=== PATIENT | female | born 1985 | race Caucasian/White ===

== ENCOUNTER 2018-03-14 09:55 | Emergency (ER) | payer MEDICAID ==
[~2018-03-14] VITALS: Ht 172.7 cm; Wt 99.0 kg
[~2018-03-14 09:55] MED LIST: BACDS PO; IBUP-1986 PO; LITH150C8 PO; LITH300C PO; QUET50TA PO; QUET50TA15 PO; TRAZ150T78 PO
[2018-03-14 10:51] LABS: BASOPHILS % (AUTO) 0.2 % (0-1); EOSINOPHILS # (AUTO) 0.4 X10'3 (0-0.9); HEMATOCRIT 37.7 % (35.0-45.0); HEMOGLOBIN 13.3 g/dl (12.0-16.0); LYMPHOCYTES # (AUTO) 1.7 X10'3 (1.1-4.8); LYMPHOCYTES % (AUTO) 11.3 % (21-51); MEAN CORPUSCULAR HEMOGLOBIN 29.2 PG (27.0-31.0); MEAN CORPUSCULAR HGB CONC 35.2 % (33.0-36.5); MEAN PLATELET VOLUME 8.8 FL (7.4-10.4); MONOCYTES # (AUTO) 1.3 X10'3 (0-0.9); MONOCYTES % (AUTO) 8.6 % (2-12); NEUTROPHILS # (AUTO) 11.5 X10'3 (1.8-7.7); NEUTROPHILS % (AUTO) 76.9 % (42-75); PLATELET COUNT 300 X10'3 (140-440); RED BLOOD COUNT 4.54 X10'6 (4.20-5.60); RED CELL DISTRIBUTION WIDTH 14.2 % (11.5-14.5)
[2018-03-14 10:58] LABS: PROTHROMBIN TIME 9.9 SECONDS (9.0-12.0)
[2018-03-14 11:03] LABS: ALANINE AMINOTRANSFERASE 25 U/L (12-78); ALBUMIN/GLOBULIN RATIO 0.7 (1.1-1.5); ALKALINE PHOSPHATASE 84 IU/L (46-116); ANION GAP 9 (8-16); ASPARTATE AMINO TRANSFERASE 17 U/L (10-37); BILIRUBIN,TOTAL 0.4 MG/DL (0.1-1.0); BLOOD UREA NITROGEN 6 MG/DL (7-18); BUN/CREATININE RATIO 7.4 (6.6-38.0); CALCIUM 8.4 MG/DL (8.5-10.1); CHLORIDE 104 MMOL/L (99-107); CREATININE 0.81 MG/DL (0.40-0.90); GLUCOSE 94 MG/DL (70-104); LIPASE 54 U/L (73-393); POTASSIUM 3.1 MMOL/L (3.5-5.1); SODIUM 139 MMOL/L (135-145); TOTAL CARBON DIOXIDE 25.9 MMOL/L (24-32); TOTAL PROTEIN 7.5 G/DL (6.4-8.2); eGFR 83 ML/MIN
[2018-03-14 11:32] LABS: CLARITY,URINE SLIGHTLY CLOUDY (Clear); COLOR,URINE YELLOW (Yellow); GLUCOSE, URINE NEGATIVE (Neg); KETONES,URINE NEGATIVE (Neg); LEUKOCYTE ESTERASE ,URINE SMALL (Neg); NITRITES, URINE NEGATIVE (Neg); OCCULT BLOOD,URINE MODERATE (Neg); PH,URINE 7.5 (4.8-8.0); PROTEIN,URINE NEGATIVE (Neg); URINE HCG NEGATIVE (NEG); UROBILINOGEN,URINE 0.2 E.U/dL (0.2-1.0)
[2018-03-14 11:45] LABS: SQUAMOUS EPITHELIAL CELL,UR MANY /LPF (FEW); UA COLLECTION TYPE VOIDED
[2018-03-14 11:46] LABS: BACTERIA,URINE 2+ /HPF (Neg)
[2018-03-14] MEDS ORDERED: normal saline 1000ML IV soln IVB ONE (12:30)
[2018-03-14] MEDS ORDERED: CefTRIAXone 2gm/D5W 50ml 50 ML IV ONE (12:30)
[2018-03-14] MEDS ORDERED: ketorolac trometh. 30mg/ml inj. IV ONE (12:30)
[2018-03-14] MEDS ORDERED: acetaminophen 325mg tablet PO ONE (12:30)
[2018-03-14] MEDS ORDERED: ondansetron/PF 4mg/2ml inj IV ONE (12:30)
[2018-03-14] MEDS ORDERED: potassium Cl 20 mEq SR tablet PO STA (12:31)
[2018-03-14] MEDS ORDERED: potassium 10mEq/100ml NS w/LIDOcaine (10mg/bag) IV ONE (12:35)
[2018-03-14] MEDS ORDERED: ONDA8TAB9 PO (12:44)
[2018-03-14] MEDS ORDERED: CIPR-259 PO (12:44)
[2018-03-14] MEDS ORDERED: LOPE2TAB25 PO (12:44)
[2018-03-14 16:12] VITALS: BP 108/89
== END 2018-03-14 16:14 | disposition home or self-care (01) ==
LOC: ER 09:56
DX: N39.0 Urinary tract infection, site not specified (principal); R19.7 Diarrhea, unspecified; F15.90 Other stimulant use, unspecified, uncomplicated; G89.29 Other chronic pain; I10 Essential (primary) hypertension; Z86.14 Personal history of Methicillin resistant Staphylococcus aureus infection; Z79.899 Other long term (current) drug therapy
CPT/HCPCS: 36415; 80053; 81001; 81025; 83690; 85025; 85610; 96365; 96375; 99284; J0696; J1885; J2405; J3480; J7030

== ENCOUNTER 2019-01-07 20:53 | Emergency (ER) | payer MEDICAID ==
[~2019-01-07 20:53] MED LIST changes: +CIPR-259 PO; +LOPE2TAB25 PO; +ONDA8TAB9 PO
--- NOTE | 2019-01-07 21:00 | NUR ---
PT NIL WITHIN A COUPLE OF MINUTES OF REGISTERING. BULLDOZER MECHANIC DEENA AND JAYLA MENDEZ AWARE. DEENA WILL SPEAK WITH KAMROND
--- NOTE | 2019-01-07 21:31 | NUR ---
pt left before triage.housekeeping laundry worker notified, [employer] notified.
[2019-01-07] MEDS ORDERED: CLON-527 PO (23:49)
[2019-01-07] MEDS ORDERED: CYCL-394 PO (23:49)
[2019-01-07] MEDS ORDERED: GABA800T11 PO (23:49)
[2019-01-07] MEDS ORDERED: PRAZ1CAP5 PO (23:49)
[2019-01-07] MEDS ORDERED: LURA80TA3 PO (23:49)
[2019-01-07] MEDS ORDERED: PHEN15CA PO (23:49)
[2019-01-07] MEDS ORDERED: BUPR1TAB36 SL (23:49)
[2019-01-07] MEDS ORDERED: TEMA15CA5 PO (23:49)
[2019-01-07] MEDS ORDERED: ESCI20TA38 PO (23:49)
[2019-01-07] MEDS ORDERED: TOP100T PO (23:52)
[2019-01-08] MEDS ORDERED: LURA40TA3 PO (23:07)
== END 2019-01-07 21:31 | disposition left against medical advice (07) ==
LOC: ER 20:54
DX: R44.0 Auditory hallucinations (principal); Z53.21 Procedure and treatment not carried out due to patient leaving prior to being seen by health care provider

== ENCOUNTER 2019-01-07 22:20 | Emergency (ER) | payer MEDICAID ==
[~2019-01-07] VITALS: Ht 172.7 cm; Wt 82.0 kg
--- NOTE | 2019-01-07 23:30 | NUR ---
The patient was transfered to bed 24 in the ER overflow. She was cooperative with nursing requests and gave a urine sample. The patient appears very internally preoccupied. She is distracted. Her affect is flat and she is giving very little eye contact. She admits to hearing voices that have been telling her that her kids are not safe. She stated that she has not been sleeping well at home. She denies that she feels like harming herself at this time. She is quarded.
[2019-01-07 23:41] LABS: BASOPHILS % (AUTO) 0.1 % (0-1); EOSINOPHILS # (AUTO) 0.1 X10'3 (0-0.9); EOSINOPHILS % (AUTO) 0.4 % (0-6); HEMATOCRIT 44.8 % (35.0-45.0); HEMOGLOBIN 14.9 g/dl (12.0-16.0); MEAN CORPUSCULAR HEMOGLOBIN 28.5 PG (27.0-31.0); MEAN CORPUSCULAR HGB CONC 33.3 g/dL (33.0-36.5); MEAN CORPUSCULAR VOLUME 85.4 FL (78-98); MEAN PLATELET VOLUME 8.9 FL (7.4-10.4); MONOCYTES # (AUTO) 0.6 X10'3 (0-0.9); MONOCYTES % (AUTO) 4.6 % (2-12); NEUTROPHILS # (AUTO) 10.6 X10'3 (1.8-7.7); NEUTROPHILS % (AUTO) 86.9 % (42-75); PLATELET COUNT 272 X10'3 (140-440); RED BLOOD COUNT 5.24 X10'6 (4.20-5.60); RED CELL DISTRIBUTION WIDTH 13.6 % (11.5-14.5); WHITE BLOOD COUNT 12.2 X10'3 (4.5-11.0)
[2019-01-07] MEDS ORDERED: PHEN15CA PO (23:49)
[2019-01-07] MEDS ORDERED: GABA800T11 PO (23:49)
[2019-01-07] MEDS ORDERED: BUPR1TAB36 SL (23:49)
[2019-01-07] MEDS ORDERED: ESCI20TA38 PO (23:49)
[2019-01-07] MEDS ORDERED: TEMA15CA5 PO (23:49)
[2019-01-07] MEDS ORDERED: CYCL-394 PO (23:49)
[2019-01-07] MEDS ORDERED: CLON-527 PO (23:49)
[2019-01-07] MEDS ORDERED: LURA80TA3 PO (23:49)
[2019-01-07] MEDS ORDERED: PRAZ1CAP5 PO (23:49)
[2019-01-07] MEDS ORDERED: TOP100T PO (23:52)
[2019-01-08 00:09] LABS: URINE HCG NEGATIVE (NEG)
[2019-01-08] MEDS ORDERED: cyclobenzaprine 10mg tablet PO PRN (00:10)
[2019-01-08] MEDS ORDERED: clonazePAM 1mg tablet PO PRN (00:10)
[2019-01-08 00:18] LABS: CLARITY,URINE SLIGHTLY CLOUDY (Clear); COLOR,URINE YELLOW (Yellow); GLUCOSE, URINE NEGATIVE (Neg); KETONES,URINE >=80 mg/dl (Neg); LEUKOCYTE ESTERASE ,URINE NEGATIVE (Neg); NITRITES, URINE NEGATIVE (Neg); OCCULT BLOOD,URINE TRACE-INTACT (Neg); PROTEIN,URINE TRACE mg/dl (Neg)
[2019-01-08 00:20] LABS: URINE AMPHETAMINE SCREEN NEGATIVE (Neg); URINE BARBITUATE SCREEN NEGATIVE (Neg); URINE BENZODIAZEPINES SCREEN POSITIVE (Neg); URINE CANNABINOID SCREEN NEGATIVE (Neg); URINE COCAINE SCREEN NEGATIVE (Neg); URINE METHADONE SCREEN NEGATIVE (Neg); URINE OPIATE SCREEN NEGATIVE (Neg); URINE PHENCYCLIDINE SCREEN NEGATIVE (Neg)
[2019-01-08 00:20] LABS: ALANINE AMINOTRANSFERASE 25 U/L (12-78); ALBUMIN 4.3 G/DL (3.4-5.0); ALBUMIN/GLOBULIN RATIO 1.2 (1.1-1.5); ALKALINE PHOSPHATASE 48 IU/L (46-116); ANION GAP 11 (8-16); ASPARTATE AMINO TRANSFERASE 17 U/L (10-37); BILIRUBIN,TOTAL 0.3 MG/DL (0.1-1.0); BLOOD UREA NITROGEN 12 MG/DL (7-18); BUN/CREATININE RATIO 16.7 (6.6-38.0); CALCIUM 9.1 MG/DL (8.5-10.1); CHLORIDE 104 MMOL/L (99-107); CREATININE 0.72 MG/DL (0.40-0.90); GLUCOSE 91 MG/DL (70-104); POTASSIUM 3.7 MMOL/L (3.5-5.1); SODIUM 139 MMOL/L (135-145); TOTAL CARBON DIOXIDE 24.2 MMOL/L (24-32); TOTAL PROTEIN 7.8 G/DL (6.4-8.2); eGFR > 90 ML/MIN
[2019-01-08 00:21] LABS: UA COLLECTION TYPE CLN CATCH MIDSTREAM
[2019-01-08 00:25] LABS: MUCUS STRANDS MANY /LPF (Neg); SQUAMOUS EPITHELIAL CELL,UR MANY /LPF (FEW); WBC,URINE 0-4 /HPF (0-4)
[2019-01-08 00:26] LABS: BACTERIA,URINE 2+ /HPF (Neg)
[2019-01-08 00:29] LABS: ETHANOL < 0.010 GM/DL (0.0-0.010)
[2019-01-08 00:58] LABS: ACETAMINOPHEN < 2.0 UG/ML (10-30)
--- NOTE | 2019-01-08 07:18 | NUR ---
Talked with patient, she denies harm to self or others, she has concerns for her children and wants to get back to them. Patient does not understand why she is on a 72 hour hold. She said she lives [employer] with her mother and [employer] with her grandfather. She has 4 children ages 14,12,9,6 that live with her at her mothers, this is who currently has her children. Patients mother called this morning and she talked with her.
--- NOTE | 2019-01-08 07:26 | NUR ---
patient denies physical assessment, information charted was from verbal interview with patient.
[2019-01-08] MEDS ORDERED: citalopram 20mg tablet PO SCH (08:00)
[2019-01-08] MEDS ORDERED: topiramate 100mg tablet PO SCH (08:00)
[2019-01-08] MEDS ORDERED: PHENTERMINE HCL PO SCH (08:00)
[2019-01-08] MEDS: buprenorphine/naloxone 8mg/2mg SL tablet SL SCH ×3 (09:08→20:28)
[2019-01-08] MEDS: gabapentin 400mg capsule PO SCH ×2 (09:09→16:45)
--- NOTE | 2019-01-08 10:00 | NUR ---
patient lying in bed and does not want to be bothered.
--- NOTE | 2019-01-08 12:00 | NUR ---
patient seen by Dr. Childress and [facility]
[2019-01-08] MEDS ORDERED: lurasidone 20mg tablet PO ONE (12:05)
[2019-01-08] MEDS ORDERED: nicotine 21mg patch - 24 hr TD ONE (12:05)
[2019-01-08] MEDS ORDERED: NICOTINE POLACRILEX 2 MG LOZENGE MM PRN (12:05)
--- NOTE | 2019-01-08 14:00 | NUR ---
mother of patient here at bedside.
--- NOTE | 2019-01-08 15:00 | NUR ---
rest padd called to evaluate, unable to take due to patient being on suboxone
--- NOTE | 2019-01-08 17:00 | NUR ---
patient lying in bed on left side with eyes closed.
[2019-01-08 17:48] VITALS: BP 119/68
[2019-01-08] MEDS ORDERED: prazosin 1mg capsule PO SCH (21:00)
[2019-01-08] MEDS ORDERED: temazepam 15mg capsule PO SCH (21:00)
[2019-01-08] MEDS ORDERED: lurasidone 20mg tablet PO SCH (21:00)
[2019-01-08] MEDS ORDERED: LURA40TA3 PO (23:07)
[2019-01-09] MEDS ORDERED: lurasidone 20mg tablet PO SCH (07:30)
== END 2019-01-08 22:38 ==
LOC: ER 22:20
DX: F28 Other psychotic disorder not due to a substance or known physiological condition (principal); F31.9 Bipolar disorder, unspecified; F20.9 Schizophrenia, unspecified; F15.90 Other stimulant use, unspecified, uncomplicated; I10 Essential (primary) hypertension; M19.90 Unspecified osteoarthritis, unspecified site; G89.29 Other chronic pain; F11.90 Opioid use, unspecified, uncomplicated; Z98.890 Other specified postprocedural states; Z79.899 Other long term (current) drug therapy; Z91.013 Allergy to seafood
CPT/HCPCS: 36415; 80053; 80305; 80320; 80329; 81001; 81003; 81025; 84443; 85025; 99285

== ENCOUNTER 2019-01-08 20:40 | Inpatient (IN) | payer MEDICAID ==
[~2019-01-08] VITALS: Ht 172.7 cm; Wt 86.0 kg
[~2019-01-08 20:40] MED LIST changes: -BACDS PO; +BUPR1TAB36 SL; -CIPR-259 PO; +CLON-527 PO; +CYCL-394 PO; +ESCI20TA38 PO; +GABA800T11 PO; -IBUP-1986 PO; -LITH150C8 PO; -LITH300C PO; -LOPE2TAB25 PO; +LURA80TA3 PO; -ONDA8TAB9 PO; +PHEN15CA PO; +PRAZ1CAP5 PO; -QUET50TA PO; -QUET50TA15 PO; +TEMA15CA5 PO; +TOP100T PO; -TRAZ150T78 PO
[2019-01-08] MEDS ORDERED: acetaminophen 325mg tablet PO PRN (22:20)
[2019-01-08] MEDS ORDERED: magnesium hydroxide 30ml (MOM) UD suspension PO PRN (22:20)
[2019-01-08] MEDS ORDERED: hydrOXYzine 25 MG tablet PO PRN (22:20)
[2019-01-08] MEDS ORDERED: loperamide 2mg capsule PO PRN (22:20)
[2019-01-08] MEDS ORDERED: mag hydrox/Alum hydrox/simeth 30ml oral suspension PO PRN (22:20)
[2019-01-08] MEDS ORDERED: LURA40TA3 PO (23:07)
[2019-01-08] MEDS ORDERED: NICOTINE POLACRILEX 4 MG LOZENGE BC PRN (23:10)
[2019-01-08] MEDS ORDERED: clonazePAM 1mg tablet PO PRN (23:20)
[2019-01-08] MEDS ORDERED: cyclobenzaprine 10mg tablet PO PRN (23:20)
[2019-01-08] MEDS: LORazepam 1 MG tablet PO PRN (23:27)
[2019-01-08] MEDS: NICOTINE POLACRILEX 2 MG LOZENGE MM PRN (23:47)
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
[2019-01-09] MEDS: acetaminophen 325mg tablet PO PRN ×2 (03:57→18:34)
[2019-01-09] MEDS: citalopram 20mg tablet PO SCH (07:20)
[2019-01-09] MEDS: gabapentin 400mg capsule PO SCH ×4 (07:20→20:26)
[2019-01-09] MEDS: topiramate 100mg tablet PO SCH (07:21)
[2019-01-09] MEDS: buprenorphine/naloxone 8mg/2mg SL tablet SL SCH ×3 (07:21→20:26)
[2019-01-09 08:00] VITALS: BP 99/58
[2019-01-09 08:00] LABS: HEMOGLOBIN A1C 5.3 % (4.5-6.2)
[2019-01-09 08:06] LABS: CHOL/HDL RATIO 4.9 (0.00-4.99); CHOLESTEROL 151 MG/DL (0-200); HDL CHOLESTEROL 31 MG/DL (35-60); LDL CHOLESTEROL 109 MG/DL (50-100); TRIGLYCERIDES 98 MG/DL (20-135)
[2019-01-09] MEDS ORDERED: tuberculin, purif. prot. deriv. 5 units/0.1ml ID ONE (10:00)
[2019-01-09] MEDS: nicotine 21mg patch - 24 hr TD SCH (14:00)
--- NOTE | 2019-01-09 14:15 | NUR ---
NURSING PROGRESS NOTE Legal hold:5150 Client on involuntary status for DTS Why are they here: Pt was e brought to the ED by police for complaints of auditory hallucinations beginning today. Patient states the voices are telling her that her "kids are in danger." Additionally she reports an episode of vomiting today. ER notes report patient was suicidal, however pt denies SI upon questioning in the ER and states her only concern is her hallucinations. Assessment What has happened this shift: Patient was asleep at change of shift. She is angry and wants to go home. States she is not suicidal and not hearing voices anymore because "they increased my Latuda and they went away." States she has "4 kids at home and her grandfather is dying and she needs to go home tight now." States she does not like to be around people because "I have PTSD." Her speech is clear and thoughts linear and circumstantial. She does not appear to be responding to internal stimuli. She is med compliant and cooperative with nursing staff. S/I, H/I pt denies A/VH: pt denies Sleep: pt states sleeps good ADL's: independent Group attendance: none Were meds taken: yes Any med S/E none reported or observed Mental Status Exam Appearance: disheveled, no front teeth Eye contact: good Behavior: appropriate, calm, directable Speech: soft, normal rate and rhythm Mood: depressed anxious Affect: constricted Thought process: linear Thought Content: pt denies a/vh states that she wants to leave and doesnt think she should be here. Cognition: a/o x4 Insight: fair Judgment: fair Interventions PRN's used: davie Therapeutic interventions: 1:1 assessment, active listening, establish rapport, monitor for effects of medications, q15 min for safety. Restraints/seclusion/emergency medication: none Justification of Continued Inpatient Treatment: interrupt current crisis, evaluate and stabilize, medication adjustment.
[2019-01-09] MEDS: NICOTINE POLACRILEX 2 MG LOZENGE MM PRN (17:42)
[2019-01-09] MEDS: prazosin 1mg capsule PO SCH (20:26)
[2019-01-09] MEDS: lurasidone 20mg tablet PO SCH (20:26)
[2019-01-09] MEDS: temazepam 15mg capsule PO SCH (20:26)
--- NOTE | 2019-01-09 23:42 | NUR ---
Nursing Progress Note: The patient was seen for the evening assessment in her room and she was polite and friendly on approach. She stated she felt confused about her 5150 and frustrated because she thought her 5150 would be up and it was explained to her that the 5150 time started when she was admitted to the unit and she did accept that. She stated that she is feeling much better than when she initially went to the ER. She stated she was not sure why she started having voices but that she no longer hears them and she doesn't feel paranoid. She did not seem to be responding to internally stimuli and she seemed relaxed during the assessment. She stated that she has been under stress and thought that might have contributed to having voices and taking the phentermine. She stated that she has been trying to get off the phentermine but she has been feeling tired when she doesn't take it. She stated that she was never suicidal when she came in and denies that she feels that way now. She also denies that she has thoughts of harming others. She is taking care of her ADLs independently She stated that she does not do well in groups of people but has tried to ambulate out in the hallway where there are fewer people. She stated that she is wanting to go home and take of her children and help care of her grandfather who is ill.
[2019-01-10 08:17] LABS: BASOPHILS % (AUTO) 0.5 % (0-1); EOSINOPHILS # (AUTO) 0.3 X10'3 (0-0.9); EOSINOPHILS % (AUTO) 4.9 % (0-6); HEMATOCRIT 41.6 % (35.0-45.0); HEMOGLOBIN 13.9 g/dl (12.0-16.0); LYMPHOCYTES # (AUTO) 2.4 X10'3 (1.1-4.8); LYMPHOCYTES % (AUTO) 35.8 % (21-51); MEAN CORPUSCULAR HEMOGLOBIN 29.1 PG (27.0-31.0); MEAN CORPUSCULAR HGB CONC 33.5 g/dL (33.0-36.5); MEAN PLATELET VOLUME 9.5 FL (7.4-10.4); MONOCYTES # (AUTO) 0.8 X10'3 (0-0.9); MONOCYTES % (AUTO) 11.7 % (2-12); NEUTROPHILS # (AUTO) 3.2 X10'3 (1.8-7.7); NEUTROPHILS % (AUTO) 47.1 % (42-75); PLATELET COUNT 237 X10'3 (140-440); RED BLOOD COUNT 4.78 X10'6 (4.20-5.60); RED CELL DISTRIBUTION WIDTH 13.8 % (11.5-14.5); WHITE BLOOD COUNT 6.7 X10'3 (4.5-11.0)
[2019-01-10 08:37] VITALS: BP 92/61
[2019-01-10] MEDS: buprenorphine/naloxone 8mg/2mg SL tablet SL SCH ×3 (08:43→20:15)
[2019-01-10] MEDS: gabapentin 400mg capsule PO SCH ×3 (08:43→20:16)
[2019-01-10] MEDS: topiramate 100mg tablet PO SCH (08:44)
[2019-01-10] MEDS: citalopram 20mg tablet PO SCH (08:44)
[2019-01-10] MEDS: nicotine 21mg patch - 24 hr TD SCH (12:57)
[2019-01-10] MEDS: LORazepam 1 MG tablet PO PRN (14:05)
--- NOTE | 2019-01-10 17:16 | NUR ---
NURSING PROGRESS NOTE Legal hold: 5150 Client on involuntary status for DTS Why are they here: Pt was e brought to the ED by police for complaints of auditory hallucinations beginning today. Patient states the voices are telling her that her "kids are in danger." Additionally she reports an episode of vomiting today. ER notes report patient was suicidal, however pt denies SI upon questioning in the ER and states her only concern is her hallucinations. Assessment What has happened this shift: Patient asleep at change of shift. 1:1 assessment provided at bedside. In the middle of her assessment pt insisted on reading to this va underwriter. Pt read for a short time. She shared how difficult it is for her to be around other people and asked if she could eat her meal in her room. Encouraged pt to go to the meal room explaining to her that daily groups and meal times are an opportunity to practice being outside of her comfort zone in a safe environment. Pt later came to this va underwriter and asked for an Ativan, so I can go to the afternoon group. PRN Lorazepam administered. She stayed in group for a little over an hour. S/I, H/I pt denies A/VH: pt denies Sleep: pt states sleeps good ADL's: independent Group attendance: one of two hours Were meds taken: yes Any med S/E none reported or observed Mental Status Exam Appearance: Showered ; clean green scrubs Eye contact: good Behavior: appropriate, calm Speech: soft, normal rate and rhythm Mood: Anxious Affect: Blunted Thought process: Linear Thought Content: Focused on her tx plans here Cognition: A/Ox4 Insight: fair Judgment: fair Interventions PRN's used: Lorazepam Therapeutic interventions: Provided therapeutic communication and active listening, 1:1 assessment, medication administration/education/monitoring, encouraged ADLs,and attendance of groups, q15 min for safety checks. Restraints/seclusion/emergency medication: N/A Justification of Continued Inpatient Treatment: Pt is in need of medication stabilization to prevent further decompensation and rehospitalization.
[2019-01-10 19:00] VITALS: BP 111/82
[2019-01-10] MEDS: temazepam 15mg capsule PO SCH (20:15)
[2019-01-10] MEDS: prazosin 1mg capsule PO SCH (20:16)
[2019-01-10] MEDS: lurasidone 20mg tablet PO SCH (20:16)
--- NOTE | 2019-01-11 01:53 | NUR ---
NURSING PROGRESS NOTE Legal hold: 5150 Exp 01/11/19 @ 2235 Client on involuntary status for DTS Report received from JAYLA Jasso with the use of [employer] Why are they here: Pt was e brought to the ED by police for complaints of auditory hallucinations beginning today. Patient states the voices are telling her that her "kids are in danger." Additionally she reports an episode of vomiting today. ER notes report patient was suicidal, however pt denies SI upon questioning in the ER and states her only concern is her hallucinations. Assessment What has happened this shift: Pt was in hallway at shift change. Pt was cooperative. Pt is hopeful that she will be discharged tomorrow. She is looking forward to going home to her 4 children. Pt reports anxiety and depression 0/10. Pt's tone was abrupt when asked if she was hearing voices or if she wanted to hurt herself. Pt denies SI, A/VH. Pt requested her HS medications at 2230, she wanted to go to bed. Pt felt a little disappointed because she would not be home for sons field trip. This policy writer sales suggested the positive side that leandro is getting the help she needs. She states her children don't know she was hearing voices, only that leandro wasn't feeling very well and was getting help. S/I, H/I None reported or observed. Pt denies A/VH: None reported or observed Sleep: See sleep assessment notation ADL's: Independent Group attendance: calciner operator helper, no group Were meds taken: Pt medication compliant Any med S/E: None reported or observed Mental Status Exam Appearance: Clean, dressed in green scrubs Eye contact: Good Behavior: Calm, cooperative, hopeful Speech: Clear, normal rate and rhythm Mood: Hopeful, happy, disappointed Affect: Bright Thought process: Linear Thought Content: Discharge - wants to go home. Somewhat disappointed, she will miss her sons field trip to [place] tomorrow Cognition: A/Ox4 Insight: Fair Judgment: Fair Interventions PRN's used: None Therapeutic interventions: Provided therapeutic communication and active listening, 1:1 assessment, medication administration/education/monitoring, encouraged ADLs,and attendance of groups, q15 min for safety checks. Restraints/seclusion/emergency medication: N/A Justification of Continued Inpatient Treatment: Pt is in need of medication stabilization to prevent further decompensation and rehospitalization.
[2019-01-11] MEDS: acetaminophen 325mg tablet PO PRN (05:57)
[2019-01-11 08:00] VITALS: BP 106/69
[2019-01-11] MEDS: buprenorphine/naloxone 8mg/2mg SL tablet SL SCH ×2 (08:04→13:33)
[2019-01-11] MEDS: gabapentin 400mg capsule PO SCH ×2 (08:04→13:33)
[2019-01-11] MEDS: topiramate 100mg tablet PO SCH (08:04)
[2019-01-11] MEDS: citalopram 20mg tablet PO SCH (08:08)
[2019-01-11] MEDS: nicotine 21mg patch - 24 hr TD SCH (13:33)
[2019-01-11] MEDS ORDERED: NICO-687 TD (15:23)
--- NOTE | 2019-01-11 16:25 | NUR ---
Pt discharged to home at 1620. Discharge instructions explained to the pt. including f/u appt and medications upon d/c. Pt verbalized understanding and signed and copy sent with the pt. Pt declined smoking cessation education and stated she already has nicotine patches at home. Pt meds not changed while in the hospital and she has them already at home. Pt states aud. figueroa. are gone and she denies S.I. All belongings returned to the pt. and she signed as having received all she came in with.
== END 2019-01-11 16:20 | disposition home or self-care (01) | DRG 751 ==
LOC: ADULT MH 20:40
PROVIDERS: ADMIT Psychiatry & Neurology Psychiatry; ATTEND Psychiatry & Neurology Psychiatry
DX: F29 Unspecified psychosis not due to a substance or known physiological condition (principal); R45.851 Suicidal ideations; F32.9 Major depressive disorder, single episode, unspecified; F11.21 Opioid dependence, in remission; F15.21 Other stimulant dependence, in remission; F12.90 Cannabis use, unspecified, uncomplicated; F43.10 Post-traumatic stress disorder, unspecified; Z86.14 Personal history of Methicillin resistant Staphylococcus aureus infection; Z87.440 Personal history of urinary (tract) infections; Z87.891 Personal history of nicotine dependence; Z79.899 Other long term (current) drug therapy
CPT/HCPCS: 36415; 80061; 83036; 85025; 87070; Q0177

== ENCOUNTER 2019-01-12 18:46 | Emergency (ER) | payer MEDICAID ==
[~2019-01-12] VITALS: Ht 172.7 cm; Wt 89.0 kg
[~2019-01-12 18:46] MED LIST changes: +NICO-687 TD; -PHEN15CA PO
[2019-01-12] MEDS ORDERED: nicotine 21mg patch - 24 hr TD ONE (19:35)
[2019-01-12 19:43] LABS: BASOPHILS % (AUTO) 0.2 % (0-1); EOSINOPHILS # (AUTO) 0.4 X10'3 (0-0.9); EOSINOPHILS % (AUTO) 3.3 % (0-6); HEMATOCRIT 40.3 % (35.0-45.0); HEMOGLOBIN 13.4 g/dl (12.0-16.0); LYMPHOCYTES # (AUTO) 2.4 X10'3 (1.1-4.8); LYMPHOCYTES % (AUTO) 21.1 % (21-51); MEAN CORPUSCULAR HEMOGLOBIN 29.2 PG (27.0-31.0); MEAN CORPUSCULAR HGB CONC 33.3 g/dL (33.0-36.5); MEAN CORPUSCULAR VOLUME 87.6 FL (78-98); MONOCYTES % (AUTO) 8.7 % (2-12); NEUTROPHILS # (AUTO) 7.5 X10'3 (1.8-7.7); NEUTROPHILS % (AUTO) 66.7 % (42-75); PLATELET COUNT 211 X10'3 (140-440); RED CELL DISTRIBUTION WIDTH 13.7 % (11.5-14.5); WHITE BLOOD COUNT 11.2 X10'3 (4.5-11.0)
[2019-01-12 19:56] LABS: ALANINE AMINOTRANSFERASE 25 U/L (12-78); ALBUMIN 3.4 G/DL (3.4-5.0); ALKALINE PHOSPHATASE 40 IU/L (46-116); ANION GAP 11 (8-16); ASPARTATE AMINO TRANSFERASE 17 U/L (10-37); BILIRUBIN,TOTAL 0.1 MG/DL (0.1-1.0); BLOOD UREA NITROGEN 10 MG/DL (7-18); BUN/CREATININE RATIO 12.8 (6.6-38.0); CALCIUM 8.7 MG/DL (8.5-10.1); CHLORIDE 106 MMOL/L (99-107); CREATININE 0.78 MG/DL (0.40-0.90); GLUCOSE 115 MG/DL (70-104); POTASSIUM 3.1 MMOL/L (3.5-5.1); SODIUM 139 MMOL/L (135-145); TOTAL CARBON DIOXIDE 22.5 MMOL/L (24-32); TOTAL PROTEIN 6.7 G/DL (6.4-8.2); eGFR 86 ML/MIN
[2019-01-12] MEDS ORDERED: potassium Cl 20 mEq SR tablet PO STA (20:04)
[2019-01-12 20:06] LABS: ETHANOL < 0.010 GM/DL (0.0-0.010)
[2019-01-12] MEDS ORDERED: cyclobenzaprine 10mg tablet PO PRN (20:15)
[2019-01-12] MEDS ORDERED: clonazePAM 1mg tablet PO PRN (20:15)
[2019-01-12] MEDS: buprenorphine/naloxone 8mg/2mg SL tablet SL SCH (20:44)
[2019-01-12] MEDS: gabapentin 400mg capsule PO SCH (20:44)
[2019-01-12] MEDS ORDERED: prazosin 1mg capsule PO SCH (21:00)
[2019-01-12] MEDS ORDERED: lurasidone 20mg tablet PO SCH (21:00)
[2019-01-12] MEDS ORDERED: temazepam 15mg capsule PO SCH (21:00)
[2019-01-12 21:08] LABS: URINE HCG NEGATIVE (NEG)
[2019-01-12 21:11] LABS: COLOR,URINE YELLOW (Yellow); GLUCOSE, URINE NEGATIVE (Neg); KETONES,URINE NEGATIVE (Neg); LEUKOCYTE ESTERASE ,URINE MODERATE (Neg); NITRITES, URINE NEGATIVE (Neg); OCCULT BLOOD,URINE NEGATIVE (Neg); PROTEIN,URINE NEGATIVE (Neg); UROBILINOGEN,URINE 0.2 E.U/dL (0.2-1.0)
[2019-01-12 21:12] LABS: CLARITY,URINE SLIGHTLY CLOUDY (Clear); UA COLLECTION TYPE CLN CATCH MIDSTREAM
[2019-01-12 21:16] LABS: BACTERIA,URINE FEW /HPF (Neg); RBC,URINE 0-2 /HPF (0-2); SQUAMOUS EPITHELIAL CELL,UR FEW /LPF (FEW)
[2019-01-12 21:24] LABS: URINE AMPHETAMINE SCREEN NEGATIVE (Neg); URINE BARBITUATE SCREEN NEGATIVE (Neg); URINE BENZODIAZEPINES SCREEN NEGATIVE (Neg); URINE CANNABINOID SCREEN NEGATIVE (Neg); URINE COCAINE SCREEN NEGATIVE (Neg); URINE METHADONE SCREEN NEGATIVE (Neg); URINE OPIATE SCREEN NEGATIVE (Neg); URINE PHENCYCLIDINE SCREEN NEGATIVE (Neg)
--- NOTE | 2019-01-12 21:46 | NUR ---
pt sleeping on right side. no distress noted. will continue to monitor.
--- NOTE | 2019-01-12 23:31 | NUR ---
PT REMAINS ASLEEP - NO NEEDS AT THIS TIME.
--- NOTE | 2019-01-13 01:39 | NUR ---
Packet faxed to [facility]. Unable to confirm receipt of packet as '[id number]' hours.
--- NOTE | 2019-01-13 01:45 | NUR ---
PT AWAKE AND REQUESTED FOOD AND DRINK - PT GIVEN MEAL AND THEN WENT BACK TO BED.
--- NOTE | 2019-01-13 05:38 | NUR ---
PT HAS BEEN SLEEPING THROUGHOUT THE NIGHT. SHE SELF POSITIONS REGULARLY. NO DISTRESS NOTED. WILL CONTINUE TO MONITOR.
--- NOTE | 2019-01-13 06:07 | NUR ---
PT AWOKE AND AMBULATED TO RESTROOM AND THEN BACK TO BED. VITALS WERE UPDATED. PT C\O HEADACHE. IS IN REPORT. WILL NOTIFY MORNING RN OF PTS COMPLAINT AND SEE IF WE CAN GET AN ORDER FOR TYLENOL FOR PT.
--- NOTE | 2019-01-13 06:30 | NUR ---
Asleep upon change of shift observation. Undisturbed at this time.
[2019-01-13] MEDS: gabapentin 400mg capsule PO SCH (07:26)
[2019-01-13] MEDS: buprenorphine/naloxone 8mg/2mg SL tablet SL SCH (07:26)
[2019-01-13] MEDS ORDERED: topiramate 100mg tablet PO SCH (08:00)
[2019-01-13] MEDS ORDERED: citalopram 20mg tablet PO SCH (08:00)
--- NOTE | 2019-01-13 08:00 | NUR ---
Awakened for breakfst and AM medications. Ate well. Medications administered as ordered.
--- NOTE | 2019-01-13 08:30 | NUR ---
Grandmother here to visit. Inquiring about patient's medications. States patient was prescribed "phentermine" for depression at [facility]. Possibly causing patient to experinece "voices." Provider at [facility] will be notified of this information. Patient states "I'm no longer taking that medication."
--- NOTE | 2019-01-13 10:20 | NUR ---
Maddy Cleveland from [facility] at patient's bedside to evaluate patient for 5150 criteria.
--- NOTE | 2019-01-13 10:58 | NUR ---
Discharge Note Patient discharged to mother's house with all her personal belongings via ambulatory. Patient will follow-up with [facility] for psychiatric medications and counseling.
[2019-01-13 11:04] VITALS: BP 105/60
== END 2019-01-13 11:09 | disposition home or self-care (01) ==
LOC: ER 18:47
DX: R45.851 Suicidal ideations (principal); R44.0 Auditory hallucinations; F31.9 Bipolar disorder, unspecified; F20.9 Schizophrenia, unspecified; I10 Essential (primary) hypertension; M19.90 Unspecified osteoarthritis, unspecified site; G89.29 Other chronic pain; F15.90 Other stimulant use, unspecified, uncomplicated; F11.90 Opioid use, unspecified, uncomplicated; Z86.14 Personal history of Methicillin resistant Staphylococcus aureus infection; Z98.890 Other specified postprocedural states; Z79.899 Other long term (current) drug therapy
CPT/HCPCS: 36415; 80053; 80305; 80320; 81001; 81025; 84443; 85025; 99284

== ENCOUNTER 2019-01-14 10:53 | Emergency (ER) | payer MEDICAID ==
[~2019-01-14] VITALS: Ht 172.7 cm; Wt 95.0 kg
[~2019-01-14 10:53] MED LIST changes: -LORazepam 1 MG tablet PO ONE; -OLANZapine **IM** 10 mg inj. IM ONE; -OLANZapine 2.5MG tablet PO ONE; -clonazePAM 1mg tablet PO ONE; -haloperidol 5mg tablet PO PRN; -haloperidol lactate 5mg/ml inj IM PRN; -lurasidone 20mg tablet PO SCH; -nicotine 14mg patch - 24hr TD ONE; -quetiapine 100mg tablet PO SCH; -zolpidem 5mg tablet PO PRN
[2019-01-14 11:17] VITALS: BP 124/91
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
--- NOTE | 2019-01-14 12:49 | NUR ---
..CALLED PT. BACK TO RAP WAITING ROOM.. NOT IN LOBBY.
== END 2019-01-14 14:43 | disposition left against medical advice (07) ==
LOC: ER 10:54
DX: Z00.8 Encounter for other general examination (principal); Z53.21 Procedure and treatment not carried out due to patient leaving prior to being seen by health care provider

== ENCOUNTER → 2019-01-14 | Emergency (ER) | payer MEDICAID ==
[~2019-01-14] VITALS: Ht 172.7 cm; Wt 86.0 kg
[~2019-01-14] MED LIST changes: +LORazepam 1 MG tablet PO ONE; -NICO-687 TD; +OLANZapine **IM** 10 mg inj. IM ONE; +OLANZapine 2.5MG tablet PO ONE; +clonazePAM 1mg tablet PO ONE; +haloperidol 5mg tablet PO PRN; +haloperidol lactate 5mg/ml inj IM PRN; +lurasidone 20mg tablet PO SCH; +nicotine 14mg patch - 24hr TD ONE; +quetiapine 100mg tablet PO SCH; +zolpidem 5mg tablet PO PRN
--- NOTE | 2019-01-14 16:28 | NUR ---
CALLED [facility]. SUKH THE PA IS COMMING DOWN TO DO AN EVALUATION ON THIS PT.
--- NOTE | 2019-01-14 16:38 | NUR ---
Pt found ambulating our ambulance bay doors. Attempted to make contact with pt, who ignored myself as well as charge nurse. Jose R contacted.
--- NOTE | 2019-01-14 16:55 | NUR ---
Pt found by security and returned to ER bed 14. When questioned regarding why pt left the ED, she stated "the voices told me to". It was also found upon return to her room that the patient removed the scanner from the licensed retail supervisor cart and had placed it in her backpack. Pt resting comfortably and cooperative at this time.
--- NOTE | 2019-01-14 17:22 | NUR ---
Spoke to grandmother, who states that she would like to speak to [facility] PA regarding pt when he is at bedside.
[2019-01-14 18:59] LABS: URINE HCG NEGATIVE (NEG)
[2019-01-14 19:00] LABS: BASOPHILS % (AUTO) 0.2 % (0-1); EOSINOPHILS % (AUTO) 0.4 % (0-6); HEMATOCRIT 39.9 % (35.0-45.0); HEMOGLOBIN 13.4 g/dl (12.0-16.0); LYMPHOCYTES # (AUTO) 1.9 X10'3 (1.1-4.8); LYMPHOCYTES % (AUTO) 16.8 % (21-51); MEAN CORPUSCULAR HEMOGLOBIN 28.7 PG (27.0-31.0); MEAN CORPUSCULAR HGB CONC 33.6 g/dL (33.0-36.5); MEAN CORPUSCULAR VOLUME 85.4 FL (78-98); MEAN PLATELET VOLUME 8.7 FL (7.4-10.4); MONOCYTES # (AUTO) 0.9 X10'3 (0-0.9); MONOCYTES % (AUTO) 8.1 % (2-12); NEUTROPHILS # (AUTO) 8.2 X10'3 (1.8-7.7); NEUTROPHILS % (AUTO) 74.5 % (42-75); PLATELET COUNT 271 X10'3 (140-440); RED BLOOD COUNT 4.68 X10'6 (4.20-5.60); RED CELL DISTRIBUTION WIDTH 13.7 % (11.5-14.5)
[2019-01-14 19:06] LABS: ALANINE AMINOTRANSFERASE 25 U/L (12-78); ALBUMIN 3.9 G/DL (3.4-5.0); ALBUMIN/GLOBULIN RATIO 1.1 (1.1-1.5); ALKALINE PHOSPHATASE 45 IU/L (46-116); ANION GAP 8 (8-16); ASPARTATE AMINO TRANSFERASE 12 U/L (10-37); BILIRUBIN,TOTAL 0.3 MG/DL (0.1-1.0); BLOOD UREA NITROGEN 8 MG/DL (7-18); BUN/CREATININE RATIO 11.4 (6.6-38.0); CALCIUM 9.4 MG/DL (8.5-10.1); CHLORIDE 107 MMOL/L (99-107); ETHANOL < 0.010 GM/DL (0.0-0.010); GLUCOSE 88 MG/DL (70-104); POTASSIUM 3.6 MMOL/L (3.5-5.1); SODIUM 139 MMOL/L (135-145); TOTAL CARBON DIOXIDE 23.6 MMOL/L (24-32); TOTAL PROTEIN 7.4 G/DL (6.4-8.2); eGFR > 90 ML/MIN
[2019-01-14 19:10] LABS: CLARITY,URINE SLIGHTLY CLOUDY (Clear); COLOR,URINE YELLOW (Yellow); GLUCOSE, URINE NEGATIVE (Neg); KETONES,URINE TRACE mg/dl (Neg); LEUKOCYTE ESTERASE ,URINE TRACE (Neg); NITRITES, URINE NEGATIVE (Neg); OCCULT BLOOD,URINE SMALL (Neg); PROTEIN,URINE 30 mg/dl (Neg); UA COLLECTION TYPE CLN CATCH MIDSTREAM; URINE AMPHETAMINE SCREEN NEGATIVE (Neg); URINE BARBITUATE SCREEN NEGATIVE (Neg); URINE BENZODIAZEPINES SCREEN POSITIVE (Neg); URINE CANNABINOID SCREEN POSITIVE (Neg); URINE COCAINE SCREEN NEGATIVE (Neg); URINE METHADONE SCREEN NEGATIVE (Neg); URINE OPIATE SCREEN NEGATIVE (Neg); URINE PHENCYCLIDINE SCREEN NEGATIVE (Neg); UROBILINOGEN,URINE 0.2 E.U/dL (0.2-1.0)
[2019-01-14 19:19] LABS: BACTERIA,URINE 3+ /HPF (Neg); MUCUS STRANDS NONE SEEN /LPF (Neg); SQUAMOUS EPITHELIAL CELL,UR MANY /LPF (FEW)
--- NOTE | 2019-01-14 19:23 | NUR ---
pt moved from ed 14 to OF 27. pt ambulated w/o assistance with steady gate. pt is resting quietly now.
--- NOTE | 2019-01-14 20:00 | NUR ---
pt's grandmother stopped to check on pt. pt was asleep at time.
--- NOTE | 2019-01-14 22:24 | NUR ---
pt is sleeping. no s/s of distress, will continue to monitor.
--- NOTE | 2019-01-15 00:14 | NUR ---
pt is sleeping. no s/s of distress, rr wnl.
--- NOTE | 2019-01-15 02:16 | NUR ---
pt continues to sleep. she awoke briefly and ate a don cracker and then back to sleep. No s/s of distress noted, will continue to monitor.
--- NOTE | 2019-01-15 02:30 | NUR ---
pt requested snack, given yogurt.
--- NOTE | 2019-01-15 04:07 | NUR ---
pt awoke and requested nicotine patch and klonopin. pt reminded that she received patch 10 hours prior as well as klonopin. pt reports that she takes klonopin bid-consult with dr rubio-no additional klonopin at this time. pt informed and is now resting in bed.
--- NOTE | 2019-01-15 06:40 | NUR ---
Patient sleeping supine. No distress observed. Continue to monitor.
--- NOTE | 2019-01-15 07:55 | NUR ---
Patient sleeping prone. No distress observed. Continue to monitor.
--- NOTE | 2019-01-15 10:35 | NUR ---
Patient sitting up and eating breakfast. No distress observed. Patient states she wants to go home. Continue to monitor.
[2019-01-15] MEDS: citalopram 20mg tablet PO SCH (10:42)
[2019-01-15] MEDS: topiramate 100mg tablet PO SCH (10:42)
[2019-01-15] MEDS: buprenorphine/naloxone 8mg/2mg SL tablet SL SCH ×3 (10:42→20:20)
[2019-01-15] MEDS: gabapentin 400mg capsule PO SCH ×3 (10:42→20:20)
--- NOTE | 2019-01-15 10:59 | NUR ---
pt's grandmother here to visit
--- NOTE | 2019-01-15 11:03 | NUR ---
grandmother says that pt was given rx for phentermine and then became delusional, states she hasn't used any methamphetamine for two years, wants mental health to be aware of that
[2019-01-15] MEDS: clonazePAM 1mg tablet PO PRN (11:28)
--- NOTE | 2019-01-15 13:12 | NUR ---
pt's emar does not reflect recent med reconciliation-gagapentin is supposed to be 800 mg tid, emar only has 400 mg tid. called pharmacy, pharmacist to correct emar.
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
--- NOTE | 2019-01-15 13:35 | NUR ---
Nancie ROSE, evaluating patient.
[2019-01-15] MEDS: NICOTINE POLACRILEX 4 MG LOZENGE BC PRN (13:50)
--- NOTE | 2019-01-15 15:05 | NUR ---
Patient ambulatory, steady gait to bathroom. No distress observed. Continue to monitor.
--- NOTE | 2019-01-15 18:16 | NUR ---
Patient eating dinner and talking to her mom on the phone. No distress observed.
[2019-01-15] MEDS: nicotine 21mg patch - 24 hr TD SCH (18:54)
--- NOTE | 2019-01-15 20:00 | NUR ---
The patient was on her bed and rocking back and forth. Appears anxious and worried. She stated at home that her family tried to restrict her medications and "I barely slept and I had an emotional breakdown" She initially stated that it was hard for her to hear the voices but during the assessment she would relate several things that the voices were telling her. She denies that she has thoughts to harm herself or others. She stated last week she was seeing "weird shadows. I thought it was an chel" She became increasing anxious and asked for another klonopin. Discussed patient's presentation with Dr. Toscano and received a one time order of ativan one mg and zyprexa 5mg. Discussed patient's overall ER presentation with Sahil MONK for psychiatry and her current medication regime and orders received.
[2019-01-15] MEDS: prazosin 1mg capsule PO SCH (20:18)
[2019-01-15] MEDS: temazepam 15mg capsule PO SCH ×2 (20:19→23:01)
--- NOTE | 2019-01-15 23:35 | NUR ---
The patient was awake briefly and asked for and received a snack and now appears to be back asleep
--- NOTE | 2019-01-16 03:05 | NUR ---
The patient appears to be asleep at this time
[2019-01-16] MEDS: NICOTINE POLACRILEX 4 MG LOZENGE BC PRN ×3 (04:26→17:07)
--- NOTE | 2019-01-16 05:06 | NUR ---
The patient has been sleeping poorly during the night. She awakens frequently
[2019-01-16] MEDS: clonazePAM 1mg tablet PO PRN ×2 (07:53→22:11)
[2019-01-16] MEDS: gabapentin 400mg capsule PO SCH ×3 (07:53→21:41)
[2019-01-16] MEDS: citalopram 20mg tablet PO SCH (07:53)
[2019-01-16] MEDS: topiramate 100mg tablet PO SCH (07:53)
[2019-01-16] MEDS: buprenorphine/naloxone 8mg/2mg SL tablet SL SCH ×3 (07:54→21:42)
[2019-01-16] MEDS: lurasidone 60mg tablet PO SCH (07:54)
[2019-01-16] MEDS: nicotine 21mg patch - 24 hr TD SCH (17:01)
--- NOTE | 2019-01-16 19:59 | NUR ---
Pt appears to be sleeping, rr 14 and unlabored. will assess her when she awakens
--- NOTE | 2019-01-16 20:23 | NUR ---
PT UP TO BR TO VOID. AMBULATING WITH STEADY GAIT. GIVEN JUICE PER REQUEST.
--- NOTE | 2019-01-16 21:30 | NUR ---
pt up to nurses station to throw away trash. reports she is hungry. given sandwich and juice and refilled her pitcher of ice water. Pt offered her nicotine lozenge and updated that i will bring her hs meds shortly. states "yes" to lozenge and is polite and states "thank you". up ad ortega with steady gait.
[2019-01-16] MEDS: prazosin 1mg capsule PO SCH (21:42)
[2019-01-16] MEDS: temazepam 15mg capsule PO SCH (21:42)
--- NOTE | 2019-01-16 22:05 | NUR ---
PT REPORTS SHE TAKES CLONIPIN 1 MG BID, VERIFIED IN HER MED HX THAT PT RECENTLY PERSCRIBED "1-2 TABS DAILY PRN". VERBAL RECEIVED FROM DR. MIKE TO CHANGE ORDER TO BID.
--- NOTE | 2019-01-16 22:38 | NUR ---
PT UP TO NURSES STATION TO REQUEST TO USE PHONE. REMINDED THAT PHONE USE IS 8AM TO 8 PM. PT STATES "ITS NOT EVEN 8 YET" WHILE LOOKING AT THE CLOCK. TOLD IT IS 1030 PM. STATES SHE WANTS TO CALL HER KIDS TO SAY EMELY. UPDATED THAT OUR POLICY IS STRICT AND SHE CAN CALL IN THE AM. PT CALMLY WENT BACK TO HER BED , BLANKETS PULL UP TO SHOUDERS, AND IS GENTLY ROCKING HERSELF WHILE LYING ON HER LEFT SIDE.
--- NOTE | 2019-01-16 22:53 | NUR ---
up to br to void.
--- NOTE | 2019-01-17 02:07 | NUR ---
PT CONTINUES TO GET UP 1-2 TIMES AN HOUR. PT REPORTS LONG STANDING ISSUES WITH SLEEPING, ESPECIALLY AT NIGHT. REPORTS SHE USUALLY TAKES "2 FLEXERIL, 3 BENEDRYL, MY NIGHTMARE PILLS, AND ALL THE OTHER PILLS BEFORE BED" AND STATES STILL HAS ISSUES STAYING ASLEEP. DR. ZIMMERMAN NITIFIED OF NEED FOR ADTL SLEEP AID. I CONSULTED WITH PHARMACIST, SUSANNAH, AND DECISION MADE TO ORDER AMBIEN 5 MG.
--- NOTE | 2019-01-17 06:30 | NUR ---
Awake upon change of shift observation. Asking to call her mom to speak with her children at this time. States she would like to talk with children before they left for school at 0730. Informed she could place a call to children at 0715. Patient satisfied with this response.
--- NOTE | 2019-01-17 07:15 | NUR ---
On the phone with children. Then talking with mother. Stated to mother that she needed to leave the hospital to go to the school to see her children. Mother informed patient that she was not allowed to go to the school to see her children as she no longer had custody of them. Patient began yelling and crying. Apparently mother hung up the phone and so did paient. Restless and agitated after phone call. States "I don't need to be here."
[2019-01-17] MEDS: citalopram 20mg tablet PO SCH (08:06)
[2019-01-17] MEDS: lurasidone 60mg tablet PO SCH (08:06)
[2019-01-17] MEDS: buprenorphine/naloxone 8mg/2mg SL tablet SL SCH ×3 (08:06→20:41)
[2019-01-17] MEDS: topiramate 100mg tablet PO SCH (08:07)
[2019-01-17] MEDS: gabapentin 400mg capsule PO SCH ×3 (08:07→20:41)
[2019-01-17] MEDS: clonazePAM 1mg tablet PO PRN (08:08)
[2019-01-17] MEDS: nicotine 21mg patch - 24 hr TD SCH ×2 (08:12→16:42)
--- NOTE | 2019-01-17 08:30 | NUR ---
Accepted AM medication without event. Ate well for breakfast. Father here to visit. Patient appears to be comforted by his presence. Believes her reason for being in the hospital is "severe PTSD." Minimizing reports of behavior dangerous to self or others that occurred before admission. Has no memory of these events. Not able to verbalize why she is in the hospital except "my grandmother brought me here."
--- NOTE | 2019-01-17 10:30 | NUR ---
Napping at this time. Kierra Joy RN, Director [facility], in the ER to inquire about patient's mental status. Informed she had a difficult time sleeping last night after multiple medication administrations. Nurse Joy asked to review with psychiatric provider night time medications.
--- NOTE | 2019-01-17 13:00 | NUR ---
Awakened for lunch. Ate well. States "I'm always hungry." Haldol 10 mg. PO ordered for patient to decrease agitation and increase comfort. Patient accepted medication without event.
--- NOTE | 2019-01-17 16:17 | NUR ---
Call received from Lindsey RAMIREZ, Charge Nurse at [facility]. Patient has been accepted for care on their unit. Will be discharged at this time.
[2019-01-17] MEDS: NICOTINE POLACRILEX 4 MG LOZENGE BC PRN (16:42)
--- NOTE | 2019-01-17 17:17 | NUR ---
Correction: Patient remains in the Overflow area until a bed arrangement can be made for her departure at [facility].
--- NOTE | 2019-01-17 18:35 | NUR ---
received report. patient's grandmother brought in dinner for her. introduced myself and patient was smiling and seemed happy, at this point.
--- NOTE | 2019-01-17 20:06 | NUR ---
patient resting quietly at this time. No needs or concerns at this time.
[2019-01-17] MEDS: prazosin 1mg capsule PO SCH (20:40)
[2019-01-17 20:41] VITALS: BP 95/55
[2019-01-17] MEDS: temazepam 15mg capsule PO SCH (20:41)
--- NOTE | 2019-01-17 20:48 | NUR ---
patient medicated with night meds. Up to bathroom. Now will be transferred to [facility].
== END | disposition left against medical advice (07) ==
LOC: ER 15:48
DX: F31.2 Bipolar disorder, current episode manic severe with psychotic features (principal); I10 Essential (primary) hypertension; M19.90 Unspecified osteoarthritis, unspecified site; G89.29 Other chronic pain; F15.90 Other stimulant use, unspecified, uncomplicated; F11.90 Opioid use, unspecified, uncomplicated; Z98.890 Other specified postprocedural states; Z86.14 Personal history of Methicillin resistant Staphylococcus aureus infection; Z79.899 Other long term (current) drug therapy
CPT/HCPCS: 36415; 80053; 80305; 80320; 81001; 81025; 85025; 96372; 99284; 99285

== ENCOUNTER 2019-01-17 15:28 | Inpatient (IN) | payer MEDICAID ==
[~2019-01-17] VITALS: Ht 172.7 cm; Wt 88.4 kg
[2019-01-17 21:00] VITALS: BP 96/61
--- NOTE | 2019-01-17 22:00 | NUR ---
GLASS FURNACE OPERATOR NOTE: LEGAL HOLD: 5150 for GD. Admitted for Psychosis NOS. Hx Bipolar DO w/ psychotic features. Substance use DO. Report received from nurse with use of SBAR: New admit. ASSESSMENT: THIS SHIFT: Client self-presented to the ED reporting hearing voices. Client left the ED before being seen and returned home to call an ambulance. The client stated she did this because "it was taking too long to be seen". Client returned to to ED (by ambulance). Client arrived on the unit at 20:45 via wheelchair, accompanied by Husam Feng. She was AO X 3 and cooperative. Client requested Haldol upon arriving on the unit. Client was encouraged to discuss medication changes with the MD. Clients personal belongings were inventoried. Client reported to ED staff that she "lied" to leave [facility] because she wanted a cigarette. Client did not appear to be responding to internal stimuli. Client stated, "I just heard another voice. It said I was doing a good job." Client stated, "Sometimes the voices are nice and sometimes the voices are mean." Client was assessed by Estefani Whitman RN. S/I, H/I: Denies at this time. A/VH: Reports hearing voices. Sleep: Difficulty falling asleep. 100 mg Seroquel Tab PO for sleep. ADL's: Independent. Group attendance: N/A Were meds taken: Med compliant. Any med S/E: None reported or observed. MENTAL STATUS EXAM: Appearance: Disheveled. Eye contact: Direct. Behavior: Cooperative. Speech: WNL. Mood: Stable. Affect: Blunted. Thought process: Linear. Thought Content: Concerned about meds. Insight: Poor. Judgment: Poor (i.e. calling an ambulance for a nonemergent condition) INTERVENTIONS: PRN's used: 100 MG Seroquel tab PO. Therapeutic interventions: Mental health, physical, and skin assessment. 1:1 support. Meds. Restraints/seclusion/emergency medication: N/A Justification of Continued Inpatient Treatment: Client is gravely disabled and lacks insight into her mental health status. At this time client is a DTS due to impulsivity and poor judgement (i.e. threatened to exit a moving vehicle). Client needs medication stabilization. Addendum: 01/18/19 at 0445 by Katya Medrano RN Client is utilizing manipulative behaviors for example: 1. Client reported "I lied to leave [facility] because I wanted a cigarette." 2. Client left ED because she felt she felt she wasn't being seen fast enough. Client returned home and called an ambulance. 3. It was reported by ED staff that client took a scanner and put it in her backpack. When questioned the client stated, "The voices told me to do it."
[2019-01-17] MEDS ORDERED: cyclobenzaprine 10mg tablet PO PRN (22:20)
[2019-01-17] MEDS ORDERED: prazosin 1mg capsule PO ONE (22:30)
[2019-01-17] MEDS ORDERED: acetaminophen 325mg tablet PO PRN ×2 (22:30)
[2019-01-17] MEDS ORDERED: lurasidone 60mg tablet PO ONE (22:30)
[2019-01-17] MEDS ORDERED: mag hydrox/Alum hydrox/simeth 30ml oral suspension PO PRN (22:30)
[2019-01-17] MEDS ORDERED: gabapentin 400mg capsule PO ONE (22:30)
[2019-01-17] MEDS ORDERED: magnesium hydroxide 30ml (MOM) UD suspension PO PRN (22:30)
[2019-01-17] MEDS ORDERED: hydrOXYzine 25 MG tablet PO PRN (22:40)
[2019-01-17] MEDS: buprenorphine/naloxone 8mg/2mg SL tablet SL SCH (22:43)
[2019-01-18] MEDS: quetiapine 100mg tablet PO PRN (02:24)
[2019-01-18] MEDS: citalopram 20mg tablet PO SCH (07:39)
[2019-01-18] MEDS: gabapentin 400mg capsule PO SCH ×3 (07:40→21:56)
[2019-01-18] MEDS: buprenorphine/naloxone 8mg/2mg SL tablet SL SCH ×3 (07:40→21:56)
[2019-01-18 08:00] VITALS: BP 104/75
[2019-01-18] MEDS ORDERED: topiramate 100mg tablet PO SCH (08:00)
[2019-01-18] MEDS ORDERED: clonazePAM 0.5mg tablet PO PRN (12:50)
--- NOTE | 2019-01-18 16:48 | NUR ---
NURSING PROGRESS NOTE Legal hold: 5150 Client on voluntary/involuntary status for GD/DTS/DTO=GD Report received from nurse with use of HARVEY Fernández RN. Why are they here: Client self-presented to the ED reporting hearing voices. Client left the ED before being seen and returned home to call an ambulance. The client stated she did this because "it was taking too long to be seen". Client returned to ED (by ambulance). She had taken all of her medications and put them in one bottle which made them unrecognizable. Her mother reported she was acting bizarrely and unable to help care for her children. Assessment What has happened this shift: The patient was asleep at change of shift. She was awakened for breakfast twice and she finally came out to eat. Reports feeling very sleepy this morning. When up, made phone calls home. When asked if she is hearing voices she adamantly denies. Denies suicidal thoughts. She is avoidant and presenting herself as though nothing happened and nothing is wrong. Presents with a flat depressed mood, at times telling nurses what she needs and minimizing why she is here. Education was provided regarding medications and the need to be here for medication adjustments. Refocused on the reality of her situation. S/I, H/I: Denies A/VH: Denies, but likely hearing voices, minimizing Sleep: Napped frequently throughout day ADL's: Self Group attendance: yes Were meds taken: yes Any med S/E: None Mental Status Exam Appearance: Clean, disheveled Eye contact:fair Behavior: Cooperative Speech: Clear Mood: Depressed Affect: bland Thought process: minimizing situation Thought Content: circumstantial Cognition:Alert Insight: poor Judgment: poor Interventions PRN's used:None Therapeutic interventions: established rapport, 1:1 assessment with patient, provided active listening, provided a safe and therapeutic environment, reassurance, education, and maintained q15m safety checks. Restraints/seclusion/emergency medication: None Justification of Continued Inpatient Treatment: The patient has poor judgment and is a danger to herself and cannot provide for her own needs. She requires medication management and a therapeutic milieu to interrupt current crisis. Without intervention she is at risk for harming himself and/or readmission.
[2019-01-18 19:00] VITALS: BP 118/76
[2019-01-18] MEDS ORDERED: prazosin 1mg capsule PO SCH (21:00)
[2019-01-18] MEDS: lurasidone 60mg tablet PO SCH (21:57)
[2019-01-19] MEDS: quetiapine 100mg tablet PO PRN (01:41)
--- NOTE | 2019-01-19 02:54 | NUR ---
NURSING PROGRESS NOTE Legal hold: 5150 Client on voluntary/involuntary status for GD/DTS/DTO=GD Report received from nurse with use of HARVEY Portillo RN. Why are they here: Client self-presented to the ED reporting hearing voices. Client left the ED before being seen and returned home to call an ambulance. The client stated she did this because "it was taking too long to be seen". Client returned to ED (by ambulance). She had taken all of her medications and put them in one bottle which made them unrecognizable. Her mother reported she was acting bizarrely and unable to help care for her children. Assessment What has happened this shift: The patient was asleep at change of shift. She remains in her room most of the shift. She does leave to shower this evening but then immediately returns back to her bed. Patient denies SI/HI, AH/VH. She keeps conversation to a minimum by stating she is tired and ready to go back to sleep. When asked about her being tired she replies "I drink a lot of caffeine like 4-6 energy drinks a day so I can take care of my 4 kids." Then reiterates she is tired and say's it because she does not have caffeine. She then lays down and goes back to sleep. S/I, H/I: Denies A/VH: Denies, but likely hearing voices, minimizing Sleep: Slept most of shift, see sleep assessment ADL's: Independent Group attendance: No groups this shift Were meds taken: Yes Any med S/E: None reported or observed Mental Status Exam Appearance: Clean, showered Eye contact: Good Behavior: Cooperative Speech: Clear Mood: Depressed, fatigued Affect: Flat Thought process: Hard to assess minimal conversation, states she is tired due to lack of caffeine Thought Content: Circumstantial Cognition: Alert & O x3 Insight: Poor Judgment: Poor Interventions PRN's used: Tylenol, Seroquel Therapeutic interventions: Established rapport, 1:1 assessment with patient, provided active listening, provided a safe and therapeutic environment, reassurance, education, and maintained q15m safety checks. Restraints/seclusion/emergency medication: None Justification of Continued Inpatient Treatment: The patient has poor judgment and is a danger to herself and cannot provide for her own needs. She requires medication management and a therapeutic milieu to interrupt current crisis. Without intervention she is at risk for harming herself and/or readmission.
[2019-01-19 07:52] VITALS: BP 106/65
[2019-01-19] MEDS: gabapentin 400mg capsule PO SCH ×3 (08:11→21:39)
[2019-01-19] MEDS: citalopram 20mg tablet PO SCH (08:12)
[2019-01-19] MEDS: buprenorphine/naloxone 8mg/2mg SL tablet SL SCH ×2 (08:12→12:02)
[2019-01-19] MEDS ORDERED: nicotine 21mg patch - 24 hr TD ONE (10:15)
[2019-01-19] MEDS: clonazePAM 1mg tablet PO PRN ×2 (11:09→19:05)
[2019-01-19] MEDS ORDERED: quetiapine 100mg tablet PO PRN (13:20)
[2019-01-19] MEDS: quetiapine 100mg tablet PO SCH ×2 (13:25→21:39)
--- NOTE | 2019-01-19 15:18 | NUR ---
NURSING PROGRESS NOTE: Dilcia Bansal Legal hold: 5150 Client on voluntary/involuntary status for GD/DTS/DTO=GD Report received from nurse with use of HARVEY Fernández RN. Why are they here: Client self-presented to the ED reporting hearing voices. Client left the ED before being seen and returned home to call an ambulance. The client stated she did this because "it was taking too long to be seen". Client returned to ED (by ambulance). She had taken all of her medications and put them in one bottle which made them unrecognizable. Her mother reported she was acting bizarrely and unable to help care for her children. Assessment What has happened this shift: The patient was asleep at change of shift. Cooperative with 1:1 assessment. States she was extremely fatigued during the day, so her grandmother reduced her sleeping medications which then caused significant anxiety related to inability to sleep. Did not attend group, stated she heard a song which reminded her of her children, she was tearful and requested ativan. She rated her anxiety at a 7/10. Within an hour, she reported reduced anxiety. Patient denies SI/HI, AH/VH. She states she is feeling better ready to return home. Met with Dr. Childress, medications adjusted. Attended afternoon group. S/I, H/I: Denies A/VH: Denies Sleep: 7 hours ADL's: Independent Group attendance: Attended afternoon group Were meds taken: Yes Any med S/E: None reported or observed Mental Status Exam Appearance: Clean, showered Eye contact: Good Behavior: Cooperative Speech: Clear Mood: Labile Increased anxiety r/t missing children, then happy and ready to go home (after medication affect) Affect: Congruent with mood Thought process: linear Thought Content: being discharged home, her children Cognition: Alert & O x3 Insight: fair Judgment: fair Interventions PRN's used: Ativan Therapeutic interventions: Established rapport, 1:1 assessment with patient, provided active listening, provided a safe and therapeutic environment, reassurance, education, and maintained q15m safety checks. Restraints/seclusion/emergency medication: None Justification of Continued Inpatient Treatment: The patient has fair judgment. She requires medication management and a therapeutic milieu to interrupt current crisis. Without intervention she is at risk for recurrent crisis and/or readmission.
[2019-01-19 19:00] VITALS: BP 127/81
[2019-01-19] MEDS ORDERED: buprenorphine/naloxone 8mg/2mg SL tablet SL ONE (21:00)
[2019-01-19] MEDS ORDERED: QUEtiapine 25mg tablet PO SCH (21:00)
[2019-01-19] MEDS: lurasidone 60mg tablet PO SCH (21:39)
--- NOTE | 2019-01-20 01:48 | NUR ---
NURSING PROGRESS NOTE: Dilcia Bansal Legal hold: 5150 Client on voluntary/involuntary status for GD/DTS/DTO=GD Report received from nurse with use of HARVEY Portillo RN. Why are they here: Client self-presented to the ED reporting hearing voices. Client left the ED before being seen and returned home to call an ambulance. The client stated she did this because "it was taking too long to be seen". Client returned to ED (by ambulance). She had taken all of her medications and put them in one bottle which made them unrecognizable. Her mother reported she was acting bizarrely and unable to help care for her children. Assessment What has happened this shift: The patient is up and on the phone at change of shift. After her phone conversation patient requests PRN for upset/panic due to her phone conversation, she is given PRN Clonazepam 1mg with good effect. She reports during 1:1 assessment that she was really upset an frustrated because she misses her children and worries about them. She also reports depression because of this. She denies any SI/HI, VH/AH. She spends most of her evening in her room in bed and does not interact with others much. She is compliant with all evening medications and reports no side effects to medications. S/I, H/I: Denies A/VH: Denies Sleep: Currently sleeping, see sleep assessment ADL's: Independent Group attendance: No groups this shift Were meds taken: Yes Any med S/E: None reported or observed Mental Status Exam Appearance: Clean, showered Eye contact: Good Behavior: Cooperative, isolative Speech: Clear Mood: Depressed, sad Affect: Congruent with mood Thought process: Linear Thought Content: being discharged home, her children Cognition: Alert & O x3 Insight: fair Judgment: Fair Interventions PRN's used: Clonazepam Therapeutic interventions: Established rapport, 1:1 assessment with patient, provided active listening, provided a safe and therapeutic environment, reassurance, education, and maintained q15m safety checks. Restraints/seclusion/emergency medication: None Justification of Continued Inpatient Treatment: The patient has fair judgment. She requires medication management and a therapeutic milieu to interrupt current crisis. Without intervention she is at risk for recurrent crisis and/or readmission.
[2019-01-20 08:00] VITALS: BP 113/77
[2019-01-20] MEDS ORDERED: nicotine 21mg patch - 24 hr TD SCH (08:00)
[2019-01-20] MEDS ORDERED: buprenorphine/naloxone 8mg/2mg SL tablet SL SCH (08:00)
[2019-01-20] MEDS: gabapentin 400mg capsule PO SCH ×2 (08:10→12:13)
[2019-01-20] MEDS: citalopram 20mg tablet PO SCH (08:10)
[2019-01-20] MEDS ORDERED: NICOTINE POLACRILEX 2 MG LOZENGE MM PRN (11:10)
[2019-01-20] MEDS ORDERED: ESCI20TA38 PO (13:30)
[2019-01-20] MEDS ORDERED: NICO-668 MM (13:30)
[2019-01-20] MEDS ORDERED: BUPR1TAB36 SL (13:30)
[2019-01-20] MEDS ORDERED: LURA120T PO (13:30)
[2019-01-20] MEDS ORDERED: CYCL-394 PO (13:30)
[2019-01-20] MEDS ORDERED: NICO-687 TD (13:30)
[2019-01-20] MEDS ORDERED: QUET100T33 PO (13:30)
[2019-01-20] MEDS ORDERED: CLON-527 PO (13:30)
[2019-01-20] MEDS ORDERED: PRAZ2CAP2 PO (13:30)
[2019-01-20] MEDS ORDERED: GABA800T11 PO (13:30)
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
--- NOTE | 2019-01-20 15:01 | NUR ---
Discharge Note: Pt discharge to grandmother at 1430. Discharge Instructions explained to the patient including medications and followup appt which pt will call for. Pt verbalized understanding and signed d/c instructions and copy sent with the patient. Pt sent with prescriptions which she will fill at her pharmacy of choice. Pt denies depression and denies S.I./H.I. Pt declined smoking cessation information. All belongings and medications returned to the patient and she signed as having received all.
== END 2019-01-20 14:35 | disposition home or self-care (01) | DRG 773 ==
LOC: ADULT MH 15:28
PROVIDERS: ADMIT Psychiatry & Neurology Psychiatry; ATTEND Psychiatry & Neurology Psychiatry
DX: F15.951 Other stimulant use, unspecified with stimulant-induced psychotic disorder with hallucinations (principal); F11.20 Opioid dependence, uncomplicated; E66.3 Overweight; F41.9 Anxiety disorder, unspecified; I10 Essential (primary) hypertension; F43.12 Post-traumatic stress disorder, chronic; F17.210 Nicotine dependence, cigarettes, uncomplicated; F32.9 Major depressive disorder, single episode, unspecified; F39 Unspecified mood [affective] disorder; M19.90 Unspecified osteoarthritis, unspecified site; M54.9 Dorsalgia, unspecified; G89.29 Other chronic pain; Z91.013 Allergy to seafood; Z68.29 Body mass index [BMI] 29.0-29.9, adult; Z79.899 Other long term (current) drug therapy; Z83.3 Family history of diabetes mellitus; Z86.14 Personal history of Methicillin resistant Staphylococcus aureus infection; Z98.891 History of uterine scar from previous surgery
CPT/HCPCS: 87070; 99285

== ENCOUNTER 2019-07-26 10:11 | Emergency (ER) | payer MEDICAID ==
[~2019-07-26] VITALS: Ht 172.7 cm; Wt 92.3 kg
[~2019-07-26 10:11] MED LIST changes: +LURA120T PO; -LURA80TA3 PO; +NICO-668 MM; +NICO-687 TD; -PRAZ1CAP5 PO; +PRAZ2CAP2 PO; +QUET100T33 PO; -TEMA15CA5 PO; -TOP100T PO
[2019-07-26 10:14] VITALS: BP 150/94
[2019-07-26] MEDS ORDERED: metroNIDAZOLE 500mg tablet PO ONE (11:15)
[2019-07-26] MEDS ORDERED: azithromycin 250mg tablet PO ONE (11:15)
[2019-07-26] MEDS ORDERED: CefTRIAXone 250MG IM Kit w/LIDOcaine IM ONE (11:15)
== END 2019-07-26 11:58 | disposition home or self-care (01) ==
LOC: ER 10:11
DX: R30.0 Dysuria (principal); I10 Essential (primary) hypertension; M19.90 Unspecified osteoarthritis, unspecified site; G89.29 Other chronic pain; F31.9 Bipolar disorder, unspecified; F20.9 Schizophrenia, unspecified; F15.90 Other stimulant use, unspecified, uncomplicated; F11.90 Opioid use, unspecified, uncomplicated; Z86.14 Personal history of Methicillin resistant Staphylococcus aureus infection; Z98.890 Other specified postprocedural states; Z79.899 Other long term (current) drug therapy
CPT/HCPCS: 36415; 87491; 87591; 96372; 99283; J0696; J3490

== ENCOUNTER 2019-09-02 23:57 | Emergency (ER) | payer MEDICAID ==
[~2019-09-02] VITALS: Ht 172.7 cm; Wt 86.4 kg
--- NOTE | 2019-09-03 00:50 | NUR ---
DAYANARA (GRANDMOTHER)[phone] CALL FOR PABLO
--- NOTE | 2019-09-03 01:37 | NUR ---
PATIENT STATES THAT IS NOT POSSIBLE SHE HAD A TUBAL LIGATION IN THE PAST
--- NOTE | 2019-09-03 01:37 | NUR ---
PATIENT REFUSES TO PROVIDE URINE SAMPLE, STATES THAT SHE "IS COLD" AND DOES NOT WANT TO GET UP
[2019-09-03] MEDS ORDERED: acetaminophen 325mg tablet PO ONE (01:50)
[2019-09-03] MEDS ORDERED: normal saline 1000ML IV soln IVB ONE (01:50)
[2019-09-03 02:24] LABS: BASOPHILS % (AUTO) 0.2 % (0-1); EOSINOPHILS # (AUTO) 0.3 X10'3 (0-0.9); EOSINOPHILS % (AUTO) 2.8 % (0-6); HEMATOCRIT 39.7 % (35.0-45.0); HEMOGLOBIN 13.5 g/dl (12.0-16.0); LYMPHOCYTES # (AUTO) 1.9 X10'3 (1.1-4.8); MEAN CORPUSCULAR HGB CONC 34.1 g/dL (33.0-36.5); MEAN PLATELET VOLUME 9.5 FL (7.4-10.4); MONOCYTES # (AUTO) 0.7 X10'3 (0-0.9); MONOCYTES % (AUTO) 7.6 % (2-12); NEUTROPHILS % (AUTO) 70.4 % (42-75); PLATELET COUNT 291 X10'3 (140-440); RED BLOOD COUNT 4.52 X10'6 (4.20-5.60); RED CELL DISTRIBUTION WIDTH 14.1 % (11.5-14.5); WHITE BLOOD COUNT 9.9 X10'3 (4.5-11.0)
[2019-09-03 02:40] LABS: ALANINE AMINOTRANSFERASE 28 U/L (12-78); ALBUMIN 3.8 G/DL (3.4-5.0); ALBUMIN/GLOBULIN RATIO 1.3 (1.1-1.5); ALKALINE PHOSPHATASE 42 IU/L (46-116); ANION GAP 6 (8-16); ASPARTATE AMINO TRANSFERASE 15 U/L (10-37); BILIRUBIN,TOTAL 0.4 MG/DL (0.1-1.0); BLOOD UREA NITROGEN 13 MG/DL (7-18); BUN/CREATININE RATIO 19.7 (6.6-38.0); CHLORIDE 108 MMOL/L (99-107); CREATININE 0.66 MG/DL (0.40-0.90); GLUCOSE 95 MG/DL (70-104); POTASSIUM 3.5 MMOL/L (3.5-5.1); SODIUM 143 MMOL/L (135-145); TOTAL CARBON DIOXIDE 28.9 MMOL/L (24-32); TOTAL PROTEIN 6.8 G/DL (6.4-8.2); eGFR > 90 ML/MIN
[2019-09-03 03:36] LABS: URINE HCG NEGATIVE (NEG)
[2019-09-03 03:39] LABS: CLARITY,URINE CLOUDY (Clear); COLOR,URINE YELLOW (Yellow); GLUCOSE, URINE NEGATIVE (Neg); KETONES,URINE TRACE mg/dl (Neg); LEUKOCYTE ESTERASE ,URINE NEGATIVE (Neg); NITRITES, URINE NEGATIVE (Neg); OCCULT BLOOD,URINE TRACE-INTACT (Neg); PROTEIN,URINE NEGATIVE (Neg); UROBILINOGEN,URINE 0.2 E.U/dL (0.2-1.0)
[2019-09-03 03:41] LABS: UA COLLECTION TYPE CLN CATCH MIDSTREAM
[2019-09-03 03:56] LABS: URINE AMPHETAMINE SCREEN NEGATIVE (Neg); URINE BARBITUATE SCREEN NEGATIVE (Neg); URINE BENZODIAZEPINES SCREEN NEGATIVE (Neg); URINE CANNABINOID SCREEN POSITIVE (Neg); URINE COCAINE SCREEN NEGATIVE (Neg); URINE METHADONE SCREEN NEGATIVE (Neg); URINE OPIATE SCREEN NEGATIVE (Neg); URINE PHENCYCLIDINE SCREEN NEGATIVE (Neg)
[2019-09-03 04:21] LABS: BACTERIA,URINE 2+ /HPF (Neg); MUCUS STRANDS MODERATE /LPF (Neg); RBC,URINE 0-2 /HPF (0-2); SQUAMOUS EPITHELIAL CELL,UR MODERATE /LPF (FEW); WBC,URINE 0-4 /HPF (0-4)
--- NOTE | 2019-09-03 04:55 | NUR ---
CONTACTED PATIENT'S GRANDMOTHER DAYANARA TO COME PICK PATEINT UP.
[2019-09-03 05:29] VITALS: BP 103/67
== END 2019-09-03 05:15 | disposition home or self-care (01) ==
LOC: ER 23:57
DX: R55 Syncope and collapse (principal); M19.90 Unspecified osteoarthritis, unspecified site; G89.29 Other chronic pain; I10 Essential (primary) hypertension; F41.9 Anxiety disorder, unspecified; F31.9 Bipolar disorder, unspecified; F17.200 Nicotine dependence, unspecified, uncomplicated; F15.90 Other stimulant use, unspecified, uncomplicated; F11.90 Opioid use, unspecified, uncomplicated; Z98.890 Other specified postprocedural states; Z91.013 Allergy to seafood; Z79.899 Other long term (current) drug therapy
CPT/HCPCS: 36415; 80053; 80305; 81001; 81025; 85025; 93005; 96360; 99284; J7030

== ENCOUNTER 2019-11-25 07:29 | Emergency (ER) | payer MEDICAID ==
[~2019-11-25] VITALS: Ht 172.7 cm; Wt 76.0 kg
[~2019-11-25 07:29] MED LIST changes: -BUPR1TAB36 SL; +BUPR1TAB45 SL; -ESCI20TA38 PO; +ESCI20TA45 PO
[2019-11-25 07:33] VITALS: BP 137/100
[2019-11-25 08:18] LABS: URINE AMPHETAMINE SCREEN POSITIVE (Neg); URINE BARBITUATE SCREEN NEGATIVE (Neg); URINE BENZODIAZEPINES SCREEN NEGATIVE (Neg); URINE CANNABINOID SCREEN NEGATIVE (Neg); URINE COCAINE SCREEN NEGATIVE (Neg); URINE METHADONE SCREEN NEGATIVE (Neg); URINE OPIATE SCREEN POSITIVE (Neg); URINE PHENCYCLIDINE SCREEN NEGATIVE (Neg)
--- NOTE | 2019-11-25 08:27 | NUR ---
PER REGISTRATION PT HAS WALKED OUT.
== END 2019-11-25 09:39 | disposition left against medical advice (07) ==
LOC: ER 07:29
DX: F15.10 Other stimulant abuse, uncomplicated (principal); F11.90 Opioid use, unspecified, uncomplicated; I10 Essential (primary) hypertension; M19.90 Unspecified osteoarthritis, unspecified site; G89.29 Other chronic pain; F41.9 Anxiety disorder, unspecified; F31.9 Bipolar disorder, unspecified; Z98.890 Other specified postprocedural states; Z91.013 Allergy to seafood; Z79.899 Other long term (current) drug therapy
CPT/HCPCS: 80305; 99283

== ENCOUNTER → 2019-11-29 | Emergency (ER) | payer MEDICAID ==
[~2019-11-29] VITALS: Ht 172.7 cm; Wt 78.0 kg
[2019-11-29 17:28] VITALS: BP 136/89
--- NOTE | 2019-11-29 17:40 | NUR ---
PT ASKING ABOUT HER SIGNIFICANT OTHER. GOES OUTSIDE TO CHECK ON HIM AND DOESNT RETURN.
== END | disposition left against medical advice (07) ==
LOC: ER 16:37
DX: Z53.21 Procedure and treatment not carried out due to patient leaving prior to being seen by health care provider (principal); T14.8XXA Other injury of unspecified body region, initial encounter; W57.XXXA Bitten or stung by nonvenomous insect and other nonvenomous arthropods, initial encounter; Y93.89 Activity, other specified; Y92.89 Other specified places as the place of occurrence of the external cause; Y99.8 Other external cause status
CPT/HCPCS: 99285

== ENCOUNTER 2019-12-01 07:36 | Emergency (ER) | payer MEDICAID ==
[~2019-12-01] VITALS: Ht 172.7 cm; Wt 77.0 kg
[2019-12-01 07:40] VITALS: BP 149/100
--- NOTE | 2019-12-01 07:46 | NUR ---
came in for medical clearance for [facility]
== END 2019-12-01 07:56 | disposition home or self-care (01) ==
LOC: ER 07:37
DX: Z02.89 Encounter for other administrative examinations (principal); I10 Essential (primary) hypertension; G89.29 Other chronic pain; F41.9 Anxiety disorder, unspecified; F20.9 Schizophrenia, unspecified; F31.9 Bipolar disorder, unspecified; F15.90 Other stimulant use, unspecified, uncomplicated; M19.90 Unspecified osteoarthritis, unspecified site; F11.90 Opioid use, unspecified, uncomplicated; Z87.440 Personal history of urinary (tract) infections; Z86.14 Personal history of Methicillin resistant Staphylococcus aureus infection
CPT/HCPCS: 99281

== ENCOUNTER 2019-12-07 08:46 | Emergency (ER) | payer MEDICAID ==
[~2019-12-07] VITALS: Ht 172.7 cm; Wt 76.8 kg
[2019-12-07 09:41] LABS: CLARITY,URINE SLIGHTLY CLOUDY (Clear); COLOR,URINE YELLOW (Yellow); GLUCOSE, URINE NEGATIVE (Neg); KETONES,URINE NEGATIVE (Neg); LEUKOCYTE ESTERASE ,URINE NEGATIVE (Neg); NITRITES, URINE NEGATIVE (Neg); OCCULT BLOOD,URINE SMALL (Neg); PH,URINE 5.5 (4.8-8.0); PROTEIN,URINE NEGATIVE (Neg); UROBILINOGEN,URINE 0.2 E.U/dL (0.2-1.0)
[2019-12-07 09:42] LABS: URINE HCG NEGATIVE (NEG)
[2019-12-07 09:46] LABS: UA COLLECTION TYPE CLN CATCH MIDSTREAM
[2019-12-07 09:48] LABS: BACTERIA,URINE FEW /HPF (Neg); CAL OXALATE CRYSTALS 3+ /HPF (NEGATIVE); HYALINE CASTS >30 /LPF (NEGATIVE); MUCUS STRANDS MANY /LPF (Neg); SQUAMOUS EPITHELIAL CELL,UR MODERATE /LPF (FEW); WBC,URINE 0-4 /HPF (0-4)
[2019-12-07 10:10] VITALS: BP 145/90
[2019-12-07 10:11] LABS: BASOPHILS # (AUTO) 0.1 X10'3 (0-0.2); BASOPHILS % (AUTO) 0.4 % (0-1); EOSINOPHILS # (AUTO) 0.4 X10'3 (0-0.9); EOSINOPHILS % (AUTO) 3.4 % (0-6); HEMATOCRIT 41.1 % (35.0-45.0); LYMPHOCYTES # (AUTO) 3.7 X10'3 (1.1-4.8); LYMPHOCYTES % (AUTO) 29.3 % (21-51); MEAN CORPUSCULAR HEMOGLOBIN 30.4 PG (27.0-31.0); MEAN CORPUSCULAR VOLUME 89.3 FL (78-98); MEAN PLATELET VOLUME 7.9 FL (7.4-10.4); MONOCYTES # (AUTO) 1.1 X10'3 (0-0.9); MONOCYTES % (AUTO) 8.8 % (2-12); NEUTROPHILS # (AUTO) 7.3 X10'3 (1.8-7.7); NEUTROPHILS % (AUTO) 58.1 % (42-75); PLATELET COUNT 379 X10'3 (140-440); RED BLOOD COUNT 4.61 X10'6 (4.20-5.60); RED CELL DISTRIBUTION WIDTH 14.3 % (11.5-14.5); WHITE BLOOD COUNT 12.5 X10'3 (4.5-11.0)
[2019-12-07 10:20] LABS: ALANINE AMINOTRANSFERASE 20 U/L (12-78); ALBUMIN 3.8 G/DL (3.4-5.0); ALBUMIN/GLOBULIN RATIO 1.1 (1.1-1.5); ALKALINE PHOSPHATASE 57 IU/L (46-116); AMYLASE 30 U/L (25-115); ANION GAP 6 (8-16); ASPARTATE AMINO TRANSFERASE 16 U/L (10-37); BILIRUBIN,TOTAL 0.2 MG/DL (0.1-1.0); BLOOD UREA NITROGEN 17 MG/DL (7-18); BUN/CREATININE RATIO 21.5 (6.6-38.0); CALCIUM 9.6 MG/DL (8.5-10.1); CHLORIDE 104 MMOL/L (99-107); CREATININE 0.79 MG/DL (0.40-0.90); GLUCOSE 80 MG/DL (70-104); LIPASE 88 U/L (73-393); POTASSIUM 3.8 MMOL/L (3.5-5.1); SODIUM 142 MMOL/L (135-145); TOTAL CARBON DIOXIDE 31.7 MMOL/L (24-32); TOTAL PROTEIN 7.4 G/DL (6.4-8.2); eGFR 84 ML/MIN
--- NOTE | 2019-12-07 10:30 | NUR ---
PT. asked RN if she could go outside to visit with her boyfriend and smoke a cigarette. RN stated we are limiting visitors and she needed to stay in the room while we are treating her but I'd ask bellows charger assembler nurse if this was possible. Pt. stated she can't do this and that she was leaving and then pt. left ER.
== END 2019-12-07 10:37 | disposition left against medical advice (07) ==
LOC: ER 08:47
DX: R10.9 Unspecified abdominal pain (principal); R82.998 Other abnormal findings in urine; I10 Essential (primary) hypertension; M19.90 Unspecified osteoarthritis, unspecified site; G89.29 Other chronic pain; F41.9 Anxiety disorder, unspecified; F31.9 Bipolar disorder, unspecified; F20.9 Schizophrenia, unspecified; F15.90 Other stimulant use, unspecified, uncomplicated; F11.90 Opioid use, unspecified, uncomplicated; Z86.14 Personal history of Methicillin resistant Staphylococcus aureus infection; Z98.890 Other specified postprocedural states; Z79.899 Other long term (current) drug therapy
CPT/HCPCS: 36415; 80053; 81001; 81025; 82150; 83690; 84702; 85025; 99283

== ENCOUNTER 2019-12-07 10:47 | Emergency (ER) | payer MEDICAID ==
[~2019-12-07] VITALS: Ht 172.7 cm; Wt 77.9 kg
[2019-12-07 11:12] VITALS: BP 134/97
== END 2019-12-07 12:00 | disposition home or self-care (01) ==
LOC: ER 10:47
DX: R82.998 Other abnormal findings in urine (principal); R10.31 Right lower quadrant pain; F41.0 Panic disorder [episodic paroxysmal anxiety]; I10 Essential (primary) hypertension; M19.90 Unspecified osteoarthritis, unspecified site; G89.29 Other chronic pain; F41.9 Anxiety disorder, unspecified; F31.9 Bipolar disorder, unspecified; F20.9 Schizophrenia, unspecified; F15.90 Other stimulant use, unspecified, uncomplicated; F11.90 Opioid use, unspecified, uncomplicated; Z98.890 Other specified postprocedural states; Z86.14 Personal history of Methicillin resistant Staphylococcus aureus infection; Z79.899 Other long term (current) drug therapy
CPT/HCPCS: 99281

== ENCOUNTER 2019-12-28 07:35 | Emergency (ER) | payer MEDICAID ==
[~2019-12-28] VITALS: Ht 172.7 cm; Wt 77.6 kg
[2019-12-28 07:38] VITALS: BP 150/110
--- NOTE | 2019-12-28 07:57 | NUR ---
pt's heart rate of 121 is baseline per the pt. pt reports it has been high since the emergency 13 years ago. will make provider aware.
== END 2019-12-28 08:27 | disposition home or self-care (01) ==
LOC: ER 07:36
DX: R22.0 Localized swelling, mass and lump, head (principal); I10 Essential (primary) hypertension; M19.90 Unspecified osteoarthritis, unspecified site; G89.29 Other chronic pain; F41.9 Anxiety disorder, unspecified; F31.9 Bipolar disorder, unspecified; F20.9 Schizophrenia, unspecified; F17.200 Nicotine dependence, unspecified, uncomplicated; F11.90 Opioid use, unspecified, uncomplicated; F12.90 Cannabis use, unspecified, uncomplicated; Z86.14 Personal history of Methicillin resistant Staphylococcus aureus infection; Z98.890 Other specified postprocedural states; Z79.899 Other long term (current) drug therapy
CPT/HCPCS: 99284

== ENCOUNTER 2020-01-04 18:05 | Emergency (ER) | payer MEDICAID ==
[~2020-01-04] VITALS: Ht 172.7 cm; Wt 74.2 kg
[2020-01-04 18:28] VITALS: BP 119/91
== END 2020-01-04 18:29 | disposition home or self-care (01) ==
LOC: ER 18:05
DX: F15.10 Other stimulant abuse, uncomplicated (principal); F11.10 Opioid abuse, uncomplicated; I10 Essential (primary) hypertension; M19.90 Unspecified osteoarthritis, unspecified site; G89.29 Other chronic pain; F41.9 Anxiety disorder, unspecified; F31.9 Bipolar disorder, unspecified; F12.90 Cannabis use, unspecified, uncomplicated; F20.9 Schizophrenia, unspecified; Z86.14 Personal history of Methicillin resistant Staphylococcus aureus infection; Z87.59 Personal history of other complications of pregnancy, childbirth and the puerperium; Z91.02 Food additives allergy status; Z79.899 Other long term (current) drug therapy
CPT/HCPCS: 99281

== ENCOUNTER 2020-02-14 05:25 | Emergency (ER) | payer MEDICAID ==
[~2020-02-14] VITALS: Ht 160 cm; Wt 68.2 kg
[2020-02-14] MEDS ORDERED: normal saline 1000ML IV soln IVB ONE (05:40)
[2020-02-14] MEDS ORDERED: naloxone 2mg/2ml inj IV ONE (05:40)
[2020-02-14 07:05] LABS: BASOPHILS # (AUTO) 0.1 X10'3 (0-0.2); BASOPHILS % (AUTO) 0.6 % (0-1); EOSINOPHILS # (AUTO) 0.4 X10'3 (0-0.9); EOSINOPHILS % (AUTO) 4.1 % (0-6); HEMATOCRIT 40.2 % (35.0-45.0); HEMOGLOBIN 13.5 g/dl (12.0-16.0); LYMPHOCYTES # (AUTO) 2.9 X10'3 (1.1-4.8); LYMPHOCYTES % (AUTO) 28.5 % (21-51); MEAN CORPUSCULAR HGB CONC 33.7 g/dL (33.0-36.5); MEAN PLATELET VOLUME 8.6 FL (7.4-10.4); MONOCYTES # (AUTO) 1.2 X10'3 (0-0.9); MONOCYTES % (AUTO) 11.8 % (2-12); NEUTROPHILS # (AUTO) 5.6 X10'3 (1.8-7.7); PLATELET COUNT 286 X10'3 (140-440); RED BLOOD COUNT 4.52 X10'6 (4.20-5.60); RED CELL DISTRIBUTION WIDTH 13.2 % (11.5-14.5); WHITE BLOOD COUNT 10.2 X10'3 (4.5-11.0)
[2020-02-14 07:27] LABS: ALANINE AMINOTRANSFERASE 30 U/L (12-78); ALBUMIN 3.6 G/DL (3.4-5.0); ALBUMIN/GLOBULIN RATIO 1.1 (1.1-1.5); ALKALINE PHOSPHATASE 49 IU/L (46-116); ANION GAP 8 (8-16); ASPARTATE AMINO TRANSFERASE 22 U/L (10-37); BILIRUBIN,TOTAL 0.5 MG/DL (0.1-1.0); BLOOD UREA NITROGEN 14 MG/DL (7-18); BUN/CREATININE RATIO 20.6 (6.6-38.0); CALCIUM 9.2 MG/DL (8.5-10.1); CHLORIDE 104 MMOL/L (99-107); CREATININE 0.68 MG/DL (0.40-0.90); GLUCOSE 99 MG/DL (70-104); POTASSIUM 3.3 MMOL/L (3.5-5.1); SODIUM 139 MMOL/L (135-145); TOTAL CARBON DIOXIDE 27.4 MMOL/L (24-32); TOTAL PROTEIN 6.9 G/DL (6.4-8.2); eGFR > 90 ML/MIN
[2020-02-14 07:28] LABS: MAGNESIUM 1.8 MG/DL (1.5-2.4)
[2020-02-14 07:33] LABS: ACETAMINOPHEN < 2.0 UG/ML (10-30); ETHANOL < 0.010 GM/DL (0.0-0.010)
[2020-02-14 08:26] LABS: URINE HCG NEGATIVE (NEG)
[2020-02-14 08:41] LABS: URINE AMPHETAMINE SCREEN POSITIVE (Neg); URINE BARBITUATE SCREEN NEGATIVE (Neg); URINE BENZODIAZEPINES SCREEN NEGATIVE (Neg); URINE CANNABINOID SCREEN NEGATIVE (Neg); URINE COCAINE SCREEN NEGATIVE (Neg); URINE METHADONE SCREEN NEGATIVE (Neg); URINE OPIATE SCREEN POSITIVE (Neg); URINE PHENCYCLIDINE SCREEN NEGATIVE (Neg)
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
[2020-02-14 08:42] LABS: CLARITY,URINE CLEAR (Clear); COLOR,URINE YELLOW (Yellow); GLUCOSE, URINE NEGATIVE (Neg); KETONES,URINE NEGATIVE (Neg); LEUKOCYTE ESTERASE ,URINE NEGATIVE (Neg); NITRITES, URINE NEGATIVE (Neg); OCCULT BLOOD,URINE TRACE-INTACT (Neg); PH,URINE 7.5 (4.8-8.0); PROTEIN,URINE NEGATIVE (Neg); UROBILINOGEN,URINE 0.2 E.U/dL (0.2-1.0)
[2020-02-14 08:46] LABS: BACTERIA,URINE NONE SEEN /HPF (Neg); MUCUS STRANDS FEW /LPF (Neg); RBC,URINE NONE SEEN /HPF (0-2); SQUAMOUS EPITHELIAL CELL,UR MODERATE /LPF (FEW); UA COLLECTION TYPE STRAIGHT CATH; WBC,URINE NONE SEEN /HPF (0-4)
[2020-02-14 08:47] LABS: AMORPHOUS PHOSPHATES 1+
--- NOTE | 2020-02-14 10:35 | NUR ---
Kirstin, pt's mother, called again. She voiced concern about pt's status saying "Her boyfriend said he dropped her off because she was complaining of her stomach hurting and she wanted to take it out." Reiterated pt would be continue to be assessed, including her current cognitive/mental health status with the outcome determining next care action. Mother indicated family is trying get pt's conserved. Communicated empathy for difficult nature of family/pt dynamic, explaining if pt meets criteria for a hold she will be placed on one, but if she does not, then she will be departed, assuming no medical reason for admission.
--- NOTE | 2020-02-14 11:16 | NUR ---
Pt remains sleepy and resting with even and unlabored respirations.
[2020-02-14] MEDS ORDERED: NALO4SPR (12:20)
[2020-02-14 12:34] VITALS: BP 124/71
== END 2020-02-14 12:31 | disposition home or self-care (01) ==
LOC: ER 05:26
DX: T40.1X1A Poisoning by heroin, accidental (unintentional), initial encounter (principal); T14.8XXA Other injury of unspecified body region, initial encounter; F15.10 Other stimulant abuse, uncomplicated; I10 Essential (primary) hypertension; G89.29 Other chronic pain; M19.90 Unspecified osteoarthritis, unspecified site; F41.9 Anxiety disorder, unspecified; F31.9 Bipolar disorder, unspecified; F20.9 Schizophrenia, unspecified; F17.210 Nicotine dependence, cigarettes, uncomplicated; F12.90 Cannabis use, unspecified, uncomplicated; F10.129 Alcohol abuse with intoxication, unspecified; Z98.890 Other specified postprocedural states; Z79.899 Other long term (current) drug therapy; Y90.0 Blood alcohol level of less than 20 mg/100 ml; Y92.89 Other specified places as the place of occurrence of the external cause
CPT/HCPCS: 36415; 80053; 80305; 80320; 80329; 81001; 81025; 83735; 84443; 85025; 93005; 96374; 99285; J2310; J7030

== ENCOUNTER 2020-04-23 12:31 | Emergency (ER) | payer MEDICAID ==
[~2020-04-23 12:31] MED LIST changes: +NALO4SPR
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
== END 2020-04-23 14:16 | disposition left against medical advice (07) ==
LOC: ER 12:31
DX: F11.90 Opioid use, unspecified, uncomplicated (principal); Z53.21 Procedure and treatment not carried out due to patient leaving prior to being seen by health care provider

== ENCOUNTER 2020-06-05 14:01 | Emergency (ER) | payer MEDICAID ==
--- NOTE | 2020-06-05 14:28 | NUR ---
SECOND CALL TO TRIAGE, NOT IN LOBBY
--- NOTE | 2020-06-05 14:47 | NUR ---
THIRD CALL TO TRIAGE, NOT IN LOBBY
--- NOTE | 2020-06-05 15:25 | NUR ---
THIRD CALL TO TRIAGE, PT LEFT WITHOUT BEING SEEN.
== END 2020-06-05 15:30 | disposition left against medical advice (07) ==
LOC: ER 14:03
DX: N93.9 Abnormal uterine and vaginal bleeding, unspecified (principal); Z53.21 Procedure and treatment not carried out due to patient leaving prior to being seen by health care provider

== ENCOUNTER 2020-06-22 09:19 | Emergency (ER) | payer MEDICAID ==
[~2020-06-22] VITALS: Ht 172.7 cm; Wt 79.8 kg
[2020-06-22 09:31] VITALS: BP 130/93
--- NOTE | 2020-06-22 10:06 | NUR ---
Registration notified me regarding patient leaving the lobby, unable to talk to patient before leaving lobby. Will attempt to call back x3 when room available. Addendum: 06/22/20 at 1012 by JOAQUÍN Per registration they saw patient walk out of lobby, get into vehicle and drive away.
== END 2020-06-22 12:42 | disposition left against medical advice (07) ==
LOC: ER 09:20
DX: Z00.8 Encounter for other general examination (principal); Z53.21 Procedure and treatment not carried out due to patient leaving prior to being seen by health care provider

== ENCOUNTER 2020-08-03 14:01 | Emergency (ER) | payer MEDICAID ==
[~2020-08-03] VITALS: Ht 172.7 cm; Wt 75.0 kg
[2020-08-03 14:04] VITALS: BP 111/74
[2020-08-03 15:02] LABS: BASOPHILS % (AUTO) 0.4 % (0-1); EOSINOPHILS # (AUTO) 0.2 X10'3 (0-0.9); EOSINOPHILS % (AUTO) 3.1 % (0-6); HEMATOCRIT 42.2 % (35.0-45.0); HEMOGLOBIN 14.1 g/dl (12.0-16.0); LYMPHOCYTES # (AUTO) 2.7 X10'3 (1.1-4.8); LYMPHOCYTES % (AUTO) 34.6 % (21-51); MEAN CORPUSCULAR HEMOGLOBIN 29.2 PG (27.0-31.0); MEAN CORPUSCULAR HGB CONC 33.5 g/dL (33.0-36.5); MEAN CORPUSCULAR VOLUME 87.3 FL (78-98); MEAN PLATELET VOLUME 8.1 FL (7.4-10.4); MONOCYTES # (AUTO) 0.7 X10'3 (0-0.9); MONOCYTES % (AUTO) 8.5 % (2-12); NEUTROPHILS # (AUTO) 4.2 X10'3 (1.8-7.7); NEUTROPHILS % (AUTO) 53.4 % (42-75); PLATELET COUNT 332 X10'3 (140-440); RED BLOOD COUNT 4.83 X10'6 (4.20-5.60); RED CELL DISTRIBUTION WIDTH 13.3 % (11.5-14.5); WHITE BLOOD COUNT 7.8 X10'3 (4.5-11.0)
[2020-08-03 15:27] LABS: ALANINE AMINOTRANSFERASE 26 U/L (12-78); ALBUMIN 3.9 G/DL (3.4-5.0); ALKALINE PHOSPHATASE 70 IU/L (46-116); ANION GAP 10 (8-16); ASPARTATE AMINO TRANSFERASE 16 U/L (10-37); BILIRUBIN,TOTAL 0.4 MG/DL (0.1-1.0); BLOOD UREA NITROGEN 15 MG/DL (7-18); BUN/CREATININE RATIO 22.4 (6.6-38.0); CHLORIDE 102 MMOL/L (99-107); CREATININE 0.67 MG/DL (0.40-0.90); GLUCOSE 93 MG/DL (70-104); POTASSIUM 3.7 MMOL/L (3.5-5.1); SODIUM 140 MMOL/L (135-145); TOTAL CARBON DIOXIDE 27.7 MMOL/L (24-32); TOTAL PROTEIN 7.7 G/DL (6.4-8.2); eGFR > 90 ML/MIN
[2020-08-03 15:31] LABS: BETA HCG,QUANTITATIVE < 1.0 mIU/ml
[2020-08-03 15:35] LABS: URINE HCG NEGATIVE (NEG)
[2020-08-03 15:36] LABS: CLARITY,URINE SLIGHTLY CLOUDY (Clear); COLOR,URINE YELLOW (Yellow); GLUCOSE, URINE NEGATIVE (Neg); KETONES,URINE NEGATIVE (Neg); LEUKOCYTE ESTERASE ,URINE NEGATIVE (Neg); NITRITES, URINE NEGATIVE (Neg); OCCULT BLOOD,URINE TRACE-INTACT (Neg); PROTEIN,URINE NEGATIVE (Neg); UROBILINOGEN,URINE 0.2 E.U/dL (0.2-1.0)
[2020-08-03 15:40] LABS: UA COLLECTION TYPE CLN CATCH MIDSTREAM
[2020-08-03 15:43] LABS: SQUAMOUS EPITHELIAL CELL,UR MANY /LPF (FEW)
[2020-08-03 15:44] LABS: MUCUS STRANDS FEW /LPF (Neg)
[2020-08-03 15:45] LABS: BACTERIA,URINE FEW /HPF (Neg)
== END 2020-08-03 15:32 | disposition home or self-care (01) ==
LOC: ER 14:02
DX: R10.84 Generalized abdominal pain (principal); I10 Essential (primary) hypertension; G89.29 Other chronic pain; M54.9 Dorsalgia, unspecified; F20.9 Schizophrenia, unspecified; F12.10 Cannabis abuse, uncomplicated; F15.10 Other stimulant abuse, uncomplicated; F31.9 Bipolar disorder, unspecified; Z87.448 Personal history of other diseases of urinary system; Z91.013 Allergy to seafood; Z88.2 Allergy status to sulfonamides; Z79.899 Other long term (current) drug therapy
CPT/HCPCS: 36415; 80053; 81001; 81025; 84702; 85025; 99283

== ENCOUNTER 2020-08-08 15:13 | Emergency (ER) | payer MEDICAID ==
[~2020-08-08] VITALS: Ht 172.7 cm; Wt 86.4 kg
[2020-08-08 16:23] LABS: BASOPHILS % (AUTO) 0.3 % (0-1); EOSINOPHILS # (AUTO) 0.2 X10'3 (0-0.9); EOSINOPHILS % (AUTO) 1.7 % (0-6); HEMATOCRIT 40.7 % (35.0-45.0); HEMOGLOBIN 13.7 g/dl (12.0-16.0); LYMPHOCYTES # (AUTO) 2.9 X10'3 (1.1-4.8); LYMPHOCYTES % (AUTO) 22.7 % (21-51); MEAN CORPUSCULAR HEMOGLOBIN 29.3 PG (27.0-31.0); MEAN CORPUSCULAR HGB CONC 33.7 g/dL (33.0-36.5); MEAN PLATELET VOLUME 7.9 FL (7.4-10.4); MONOCYTES # (AUTO) 1.1 X10'3 (0-0.9); MONOCYTES % (AUTO) 8.9 % (2-12); NEUTROPHILS # (AUTO) 8.5 X10'3 (1.8-7.7); NEUTROPHILS % (AUTO) 66.4 % (42-75); PLATELET COUNT 325 X10'3 (140-440); RED BLOOD COUNT 4.67 X10'6 (4.20-5.60); RED CELL DISTRIBUTION WIDTH 13.5 % (11.5-14.5); WHITE BLOOD COUNT 12.8 X10'3 (4.5-11.0)
[2020-08-08 16:38] LABS: ALANINE AMINOTRANSFERASE 19 U/L (12-78); ALBUMIN 3.7 G/DL (3.4-5.0); ALKALINE PHOSPHATASE 64 IU/L (46-116); ANION GAP 7 (8-16); ASPARTATE AMINO TRANSFERASE 16 U/L (10-37); BILIRUBIN,TOTAL 0.3 MG/DL (0.1-1.0); BLOOD UREA NITROGEN 12 MG/DL (7-18); BUN/CREATININE RATIO 12.6 (6.6-38.0); CALCIUM 9.3 MG/DL (8.5-10.1); CHLORIDE 104 MMOL/L (99-107); CREATININE 0.95 MG/DL (0.40-0.90); GLUCOSE 82 MG/DL (70-104); POTASSIUM 3.3 MMOL/L (3.5-5.1); SODIUM 139 MMOL/L (135-145); TOTAL CARBON DIOXIDE 27.7 MMOL/L (24-32); TOTAL PROTEIN 7.3 G/DL (6.4-8.2); eGFR 68 ML/MIN
[2020-08-08 17:25] VITALS: BP 115/78
== END 2020-08-08 17:44 | disposition home or self-care (01) ==
LOC: ER 15:15
DX: R42 Dizziness and giddiness (principal); M53.3 Sacrococcygeal disorders, not elsewhere classified; G89.29 Other chronic pain; M54.9 Dorsalgia, unspecified; F31.9 Bipolar disorder, unspecified; F20.9 Schizophrenia, unspecified; F17.200 Nicotine dependence, unspecified, uncomplicated; F12.10 Cannabis abuse, uncomplicated; F15.10 Other stimulant abuse, uncomplicated; Z98.890 Other specified postprocedural states; Z91.013 Allergy to seafood; Z79.899 Other long term (current) drug therapy; W19.XXXA Unspecified fall, initial encounter; Y93.89 Activity, other specified; Y92.89 Other specified places as the place of occurrence of the external cause; Y99.8 Other external cause status
CPT/HCPCS: 36415; 71045; 80053; 83880; 84484; 85025; 93005; 99285

== ENCOUNTER 2020-11-01 10:25 | Emergency (ER) | payer MEDICAID ==
[~2020-11-01] VITALS: Ht 172.7 cm; Wt 79.5 kg
[~2020-11-01 10:25] MED LIST changes: +ESCI20TA39 PO; -ESCI20TA45 PO
[2020-11-01 10:29] VITALS: BP 136/91
[2020-11-01 11:35] LABS: BASOPHILS # (AUTO) 0.1 X10'3 (0-0.2); BASOPHILS % (AUTO) 0.6 % (0-1); EOSINOPHILS # (AUTO) 0.1 X10'3 (0-0.9); EOSINOPHILS % (AUTO) 0.9 % (0-6); HEMATOCRIT 43.2 % (35.0-45.0); HEMOGLOBIN 14.6 g/dl (12.0-16.0); LYMPHOCYTES # (AUTO) 1.3 X10'3 (1.1-4.8); LYMPHOCYTES % (AUTO) 13.6 % (21-51); MEAN CORPUSCULAR HEMOGLOBIN 29.1 PG (27.0-31.0); MEAN CORPUSCULAR HGB CONC 33.9 g/dL (33.0-36.5); MEAN CORPUSCULAR VOLUME 85.8 FL (78-98); MEAN PLATELET VOLUME 8.2 FL (7.4-10.4); MONOCYTES # (AUTO) 0.6 X10'3 (0-0.9); MONOCYTES % (AUTO) 5.8 % (2-12); NEUTROPHILS # (AUTO) 7.6 X10'3 (1.8-7.7); NEUTROPHILS % (AUTO) 79.1 % (42-75); PLATELET COUNT 360 X10'3 (140-440); RED BLOOD COUNT 5.03 X10'6 (4.20-5.60); RED CELL DISTRIBUTION WIDTH 13.9 % (11.5-14.5); WHITE BLOOD COUNT 9.6 X10'3 (4.5-11.0)
[2020-11-01 11:42] LABS: ALANINE AMINOTRANSFERASE 31 U/L (12-78); ALBUMIN 3.6 G/DL (3.4-5.0); ALBUMIN/GLOBULIN RATIO 0.8 (1.1-1.5); ALKALINE PHOSPHATASE 74 IU/L (46-116); ANION GAP 11 (8-16); ASPARTATE AMINO TRANSFERASE 18 U/L (10-37); BILIRUBIN,TOTAL 0.2 MG/DL (0.1-1.0); BLOOD UREA NITROGEN 10 MG/DL (7-18); BUN/CREATININE RATIO 15.6 (6.6-38.0); CALCIUM 9.3 MG/DL (8.5-10.1); CHLORIDE 105 MMOL/L (99-107); CREATININE 0.64 MG/DL (0.40-0.90); GLUCOSE 113 MG/DL (70-104); POTASSIUM 3.6 MMOL/L (3.5-5.1); SODIUM 142 MMOL/L (135-145); TOTAL CARBON DIOXIDE 26.1 MMOL/L (24-32); TOTAL PROTEIN 8.1 G/DL (6.4-8.2); eGFR > 90 ML/MIN
== END 2020-11-01 12:09 ==
LOC: ER 10:25
DX: R07.89 Other chest pain (principal); F19.10 Other psychoactive substance abuse, uncomplicated; F12.90 Cannabis use, unspecified, uncomplicated; R06.89 Other abnormalities of breathing; F15.90 Other stimulant use, unspecified, uncomplicated; I10 Essential (primary) hypertension; M19.90 Unspecified osteoarthritis, unspecified site; G89.29 Other chronic pain; F41.9 Anxiety disorder, unspecified; F31.9 Bipolar disorder, unspecified; F20.9 Schizophrenia, unspecified; Z98.890 Other specified postprocedural states; Z86.14 Personal history of Methicillin resistant Staphylococcus aureus infection; Z91.013 Allergy to seafood; Z79.899 Other long term (current) drug therapy
CPT/HCPCS: 36415; 71045; 80053; 83880; 84484; 85025; 93005; 99285

== ENCOUNTER 2020-12-10 12:43 | Emergency (ER) | payer MEDICAID ==
[~2020-12-10] VITALS: Ht 172.7 cm; Wt 81.8 kg
[~2020-12-10 12:43] MED LIST changes: +BUPR1FIL3 SL; -BUPR1TAB45 SL; -CLON-527 PO; -CYCL-394 PO; -GABA800T11 PO; -LURA120T PO; -NALO4SPR; -NICO-668 MM; -NICO-687 TD; -PRAZ2CAP2 PO; -QUET100T33 PO; +RISP2TAB85 PO
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
--- NOTE | 2020-12-10 13:35 | NUR ---
PT'S MOTHER JAMARI ROTH [phone] PT OK'S INFORMATION TO BE GIVEN TO HER MOTHER. PTS MOTHER IS VERY CONCERNED ABOUT HER MENTAL STATUS AND FELT THAT "SHE WAS RELEASED TOO SOON." PT'S SUICIDE PLAN IS " BY CORRECTIONS NURSE."
[2020-12-10 13:53] LABS: BASOPHILS # (AUTO) 0.1 X10'3 (0-0.2); BASOPHILS % (AUTO) 0.6 % (0-1); EOSINOPHILS # (AUTO) 0.2 X10'3 (0-0.9); EOSINOPHILS % (AUTO) 2.4 % (0-6); HEMATOCRIT 38.8 % (35.0-45.0); LYMPHOCYTES # (AUTO) 2.8 X10'3 (1.1-4.8); LYMPHOCYTES % (AUTO) 30.6 % (21-51); MEAN CORPUSCULAR HEMOGLOBIN 29.1 PG (27.0-31.0); MEAN CORPUSCULAR HGB CONC 33.6 g/dL (33.0-36.5); MEAN CORPUSCULAR VOLUME 86.7 FL (78-98); MEAN PLATELET VOLUME 7.8 FL (7.4-10.4); MONOCYTES # (AUTO) 1.3 X10'3 (0-0.9); MONOCYTES % (AUTO) 13.7 % (2-12); NEUTROPHILS # (AUTO) 4.8 X10'3 (1.8-7.7); NEUTROPHILS % (AUTO) 52.7 % (42-75); PLATELET COUNT 370 X10'3 (140-440); RED BLOOD COUNT 4.48 X10'6 (4.20-5.60); RED CELL DISTRIBUTION WIDTH 14.3 % (11.5-14.5); WHITE BLOOD COUNT 9.1 X10'3 (4.5-11.0)
[2020-12-10 14:06] LABS: ALANINE AMINOTRANSFERASE 29 U/L (12-78); ALBUMIN 3.6 G/DL (3.4-5.0); ALKALINE PHOSPHATASE 66 IU/L (46-116); ANION GAP 10 (8-16); ASPARTATE AMINO TRANSFERASE 19 U/L (10-37); BILIRUBIN,TOTAL 0.2 MG/DL (0.1-1.0); BLOOD UREA NITROGEN 15 MG/DL (7-18); BUN/CREATININE RATIO 24.6 (6.6-38.0); CALCIUM 8.8 MG/DL (8.5-10.1); CHLORIDE 103 MMOL/L (99-107); CREATININE 0.61 MG/DL (0.40-0.90); ETHANOL < 0.010 GM/DL (0.0-0.010); GLUCOSE 89 MG/DL (70-104); POTASSIUM 3.6 MMOL/L (3.5-5.1); SODIUM 140 MMOL/L (135-145); TOTAL CARBON DIOXIDE 26.9 MMOL/L (24-32); TOTAL PROTEIN 7.3 G/DL (6.4-8.2); eGFR > 90 ML/MIN
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
[2020-12-10 16:32] LABS: URINE HCG NEGATIVE (NEG)
[2020-12-10 16:49] LABS: URINE AMPHETAMINE SCREEN POSITIVE (Neg); URINE BARBITUATE SCREEN NEGATIVE (Neg); URINE BENZODIAZEPINES SCREEN POSITIVE (Neg); URINE CANNABINOID SCREEN NEGATIVE (Neg); URINE COCAINE SCREEN NEGATIVE (Neg); URINE METHADONE SCREEN NEGATIVE (Neg); URINE OPIATE SCREEN NEGATIVE (Neg); URINE PHENCYCLIDINE SCREEN NEGATIVE (Neg)
[2020-12-10] MEDS ORDERED: diphenhydrAMINE 50 mg/ml inj IM ONE (16:50)
[2020-12-10] MEDS ORDERED: LORazepam 2 mg/ml vial IM ONE (16:50)
[2020-12-10] MEDS ORDERED: haloperidol lactate 5mg/ml inj IM ONE (16:50)
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
--- NOTE | 2020-12-10 18:06 | NUR ---
The patient is currently sleeping.
--- NOTE | 2020-12-10 18:07 | NUR ---
Packet sent to [facility]
[2020-12-10] MEDS ORDERED: BUPR1FIL3 SL (19:28)
[2020-12-10] MEDS ORDERED: ESCI20TA PO (19:28)
[2020-12-10] MEDS ORDERED: RISP2TAB97 PO (19:28)
--- NOTE | 2020-12-10 19:39 | NUR ---
The patient is sleeping. She was awake briefly for dinner. She does not appear to be in any apparent distres.
--- NOTE | 2020-12-10 20:37 | NUR ---
SCM is here to evaluate the patient
[2020-12-10] MEDS: buprenorphine/naloxone 8MG-2MG SUBlingual film SL SCH (20:55)
[2020-12-10] MEDS: risperiDONE 2mg tablet PO SCH (20:55)
--- NOTE | 2020-12-10 21:29 | NUR ---
The patient appears to be sleeping
--- NOTE | 2020-12-10 21:47 | NUR ---
JAMARI ROTH PATIENTS MOTHER WANTS TO BE INCLUDED IN THE PATIENT'S MENTAL HEALTH EVAL AND HER NUMBER IS [phone]
--- NOTE | 2020-12-10 22:38 | NUR ---
The patient appears to be sleeping
--- NOTE | 2020-12-10 23:53 | NUR ---
The patient appears to be sleeping after being moved to bed 15 in the main ER
--- NOTE | 2020-12-11 00:37 | NUR ---
The patient appears to be sleeping
--- NOTE | 2020-12-11 02:50 | NUR ---
The patient appears to be sleeping
--- NOTE | 2020-12-11 03:55 | NUR ---
The patient appears to be sleeping
--- NOTE | 2020-12-11 04:23 | NUR ---
THe patient appears to be sleeping
--- NOTE | 2020-12-11 08:03 | NUR ---
TC FROM PATIENT'S MOTHER, JAMARI ROTH, FOR CONDITION REPORT. MOTHER, JAMARI ROTH, STATES SHE WOULD LIKE TO SPEAK WITH MENTAL HEALTH WORKER ABOUT HER MENTAL HEALTH CONDITION. CONTACT NUMBER IS LISTED ON CHART.
[2020-12-11] MEDS: buprenorphine/naloxone 8MG-2MG SUBlingual film SL SCH ×2 (09:18→21:48)
[2020-12-11] MEDS: ESCITALOPRAM OXALATE 5 MG TABLET PO SCH (09:19)
--- NOTE | 2020-12-11 13:22 | NUR ---
[facility] called and said that they may have an accepting facility, but they will not take her without a 2 week supply of suboxone for the pt. Let her know that we do not dispense meds nor do our providers have the ability to write a prescription for that.
--- NOTE | 2020-12-11 17:27 | NUR ---
RAYNE FROM [facility] IN [place]. STATES THEY CAN ACCEPT PATIENT IF SHE IS ABLE TO BRING 7 DAY SUPPLY OF SUBOXONE. IN ADDITION, FACILITY REQUIRES URINALYSIS TEST WITH RESULTS. THIS NURSE WILL ATTEMPT TO CONTACT FAMILY TO SEE IF PATIENT HAS 7 DAY SUPPLY OF SUBOXONE AT HOME.
--- NOTE | 2020-12-11 17:32 | NUR ---
TC TO PATIENT'S MOTHER, JAMARI, TO INQUIRE IF PATIENT HAS SUBOXONE RX AVAILABLE TO TAKE TO THE ACCEPTING FACILITY IN [place]. MOTHER, JAMARI, WILL CALL BACK WITH INFORMATION.
[2020-12-11 18:55] LABS: CLARITY,URINE CLOUDY (Clear); COLOR,URINE YELLOW (Yellow); GLUCOSE, URINE NEGATIVE (Neg); KETONES,URINE TRACE mg/dl (Neg); LEUKOCYTE ESTERASE ,URINE NEGATIVE (Neg); NITRITES, URINE NEGATIVE (Neg); OCCULT BLOOD,URINE TRACE-INTACT (Neg); PROTEIN,URINE NEGATIVE (Neg); UROBILINOGEN,URINE 0.2 E.U/dL (0.2-1.0)
[2020-12-11 18:57] LABS: UA COLLECTION TYPE CLN CATCH MIDSTREAM
[2020-12-11 19:13] LABS: BACTERIA,URINE 1+ /HPF (Neg); SQUAMOUS EPITHELIAL CELL,UR MANY /LPF (FEW); WBC,URINE 0-4 /HPF (0-4)
--- NOTE | 2020-12-11 19:59 | NUR ---
Grandmother Kristi called ([phone]) and stated she has 6 strips of suboxone (3 days worth). She is willing to provide this or run to the pharmacy for pt to be transfered with medication to accepting facility.
[2020-12-11] MEDS: risperiDONE 2mg tablet PO SCH (21:48)
[2020-12-12 05:30] VITALS: BP 108/73
[2020-12-12] MEDS: ESCITALOPRAM OXALATE 5 MG TABLET PO SCH (08:14)
[2020-12-12] MEDS: buprenorphine/naloxone 8MG-2MG SUBlingual film SL SCH (08:14)
--- NOTE | 2020-12-12 08:19 | NUR ---
pt is respectful to staff, very curious about other patients in the department, keeps opening curtain to look at other patient or peeking around the corner. patient is verbal and appropriate with other patient
--- NOTE | 2020-12-12 08:30 | NUR ---
Pt sleeping in bed, NAD. Received breakfast and took am meds. Pt makes comment about being Lucifer.
--- NOTE | 2020-12-12 08:42 | NUR ---
PT HAS BEEN ACCEPTED TO [facility] AND IS BEING TRANSPORTED AT 0900.
== END 2020-12-12 09:37 ==
LOC: ER 12:44
DX: R45.851 Suicidal ideations (principal); Z20.822 Contact with and (suspected) exposure to COVID-19; R44.0 Auditory hallucinations; F31.9 Bipolar disorder, unspecified; I10 Essential (primary) hypertension; M19.90 Unspecified osteoarthritis, unspecified site; G89.29 Other chronic pain; F41.9 Anxiety disorder, unspecified; F20.9 Schizophrenia, unspecified; F17.200 Nicotine dependence, unspecified, uncomplicated; F12.90 Cannabis use, unspecified, uncomplicated; F15.90 Other stimulant use, unspecified, uncomplicated; F11.90 Opioid use, unspecified, uncomplicated; Z87.440 Personal history of urinary (tract) infections; Z86.14 Personal history of Methicillin resistant Staphylococcus aureus infection; Z98.890 Other specified postprocedural states; Z91.013 Allergy to seafood; Z79.899 Other long term (current) drug therapy
CPT/HCPCS: 36415; 80053; 80305; 80320; 81001; 81025; 85025; 87426; 96372; 99285; J1200; J1630; J2060

== ENCOUNTER → 2021-01-20 | Emergency (ER) | payer MEDICAID ==
[~2021-01-20] MED LIST changes: +CLON0.1T2 PO; -ESCI20TA39 PO; +TRAZ-251 PO
== END | disposition left against medical advice (07) ==
LOC: ER 17:16
DX: M79.606 Pain in leg, unspecified (principal); Z53.21 Procedure and treatment not carried out due to patient leaving prior to being seen by health care provider

== ENCOUNTER 2021-01-28 05:47 | Emergency (ER) | payer MEDICAID ==
[~2021-01-28] VITALS: Ht 172.7 cm; Wt 79.5 kg
[2021-01-28 05:57] VITALS: BP 122/84
--- NOTE | 2021-01-28 06:01 | NUR ---
MARIS CONTACTED CASE#[id number]
[2021-01-28] MEDS ORDERED: acetaminophen 325mg tablet PO ONE (06:30)
== END 2021-01-28 06:48 | disposition home or self-care (01) ==
LOC: ER 05:48
DX: S50.12XA Contusion of left forearm, initial encounter (principal); S50.11XA Contusion of right forearm, initial encounter; M79.605 Pain in left leg; I10 Essential (primary) hypertension; M19.90 Unspecified osteoarthritis, unspecified site; G89.29 Other chronic pain; F41.9 Anxiety disorder, unspecified; F31.9 Bipolar disorder, unspecified; F20.9 Schizophrenia, unspecified; F17.200 Nicotine dependence, unspecified, uncomplicated; F12.90 Cannabis use, unspecified, uncomplicated; F15.90 Other stimulant use, unspecified, uncomplicated; F11.90 Opioid use, unspecified, uncomplicated; Z87.440 Personal history of urinary (tract) infections; Z86.14 Personal history of Methicillin resistant Staphylococcus aureus infection; Z98.890 Other specified postprocedural states; Z91.013 Allergy to seafood; Z79.899 Other long term (current) drug therapy; Y08.89XA Assault by other specified means, initial encounter; Y93.9 Activity, unspecified; Y92.89 Other specified places as the place of occurrence of the external cause; Y99.8 Other external cause status
CPT/HCPCS: 99283

== ENCOUNTER 2021-03-23 04:00 | Emergency (ER) | payer OTHER, MEDICAID ==
[~2021-03-23] VITALS: Ht 172.7 cm; Wt 84.1 kg
[2021-03-23] MEDS ORDERED: acetaminophen 325mg tablet PO STA (04:21)
[2021-03-23] MEDS ORDERED: normal saline 1000ML IV soln IV ONE (04:25)
[2021-03-23 05:46] LABS: URINE HCG NEGATIVE (NEG)
[2021-03-23 05:51] LABS: CLARITY,URINE CLEAR (Clear); COLOR,URINE STRAW (Yellow); GLUCOSE, URINE NEGATIVE (Neg); KETONES,URINE NEGATIVE (Neg); LEUKOCYTE ESTERASE ,URINE TRACE (Neg); NITRITES, URINE NEGATIVE (Neg); OCCULT BLOOD,URINE MODERATE (Neg); PH,URINE 7.5 (4.8-8.0); PROTEIN,URINE NEGATIVE (Neg); URINE AMPHETAMINE SCREEN NEGATIVE (Neg); URINE BARBITUATE SCREEN NEGATIVE (Neg); URINE BENZODIAZEPINES SCREEN NEGATIVE (Neg); URINE CANNABINOID SCREEN NEGATIVE (Neg); URINE COCAINE SCREEN NEGATIVE (Neg); URINE METHADONE SCREEN NEGATIVE (Neg); URINE OPIATE SCREEN NEGATIVE (Neg); URINE PHENCYCLIDINE SCREEN NEGATIVE (Neg); UROBILINOGEN,URINE 0.2 E.U/dL (0.2-1.0)
[2021-03-23 06:00] LABS: UA COLLECTION TYPE CLN CATCH MIDSTREAM
[2021-03-23 06:03] LABS: SQUAMOUS EPITHELIAL CELL,UR FEW /LPF (FEW)
[2021-03-23 06:04] LABS: BACTERIA,URINE FEW /HPF (Neg); RBC,URINE 0-2 /HPF (0-2)
[2021-03-23 06:06] LABS: WBC,URINE 0-4 /HPF (0-4)
[2021-03-23 06:26] LABS: BASOPHILS % (AUTO) 0.2 % (0-1); EOSINOPHILS # (AUTO) 0.1 X10'3 (0-0.9); EOSINOPHILS % (AUTO) 0.5 % (0-6); HEMATOCRIT 35.4 % (35.0-45.0); HEMOGLOBIN 11.9 g/dl (12.0-16.0); LYMPHOCYTES # (AUTO) 0.9 X10'3 (1.1-4.8); LYMPHOCYTES % (AUTO) 5.7 % (21-51); MEAN CORPUSCULAR HGB CONC 33.7 g/dL (33.0-36.5); MEAN PLATELET VOLUME 7.9 FL (7.4-10.4); MONOCYTES # (AUTO) 1.5 X10'3 (0-0.9); MONOCYTES % (AUTO) 9.6 % (2-12); NEUTROPHILS # (AUTO) 13.1 X10'3 (1.8-7.7); PLATELET COUNT 281 X10'3 (140-440); RED BLOOD COUNT 4.11 X10'6 (4.20-5.60); RED CELL DISTRIBUTION WIDTH 14.5 % (11.5-14.5); WHITE BLOOD COUNT 15.6 X10'3 (4.5-11.0)
[2021-03-23 06:34] LABS: ALANINE AMINOTRANSFERASE 27 U/L (12-78); ALBUMIN 3.1 G/DL (3.4-5.0); ALBUMIN/GLOBULIN RATIO 0.8 (1.1-1.5); ALKALINE PHOSPHATASE 52 IU/L (46-116); ANION GAP 11 (8-16); ASPARTATE AMINO TRANSFERASE 17 U/L (10-37); BILIRUBIN,TOTAL 0.3 MG/DL (0.1-1.0); BLOOD UREA NITROGEN 9 MG/DL (7-18); BUN/CREATININE RATIO 10.2 (6.6-38.0); CHLORIDE 105 MMOL/L (99-107); CREATININE 0.88 MG/DL (0.40-0.90); GLUCOSE 94 MG/DL (70-104); MAGNESIUM 1.7 MG/DL (1.5-2.4); POTASSIUM 3.9 MMOL/L (3.5-5.1); SODIUM 140 MMOL/L (135-145); TOTAL PROTEIN 6.9 G/DL (6.4-8.2); eGFR 74 ML/MIN
[2021-03-23] MEDS ORDERED: DOXYCYCLINE 100MG CAPSULE PO STA (06:43)
[2021-03-23] MEDS ORDERED: CefTRIAXone/D5W-Rocephin 1gm 50 ML IV ONE (06:45)
[2021-03-23] MEDS ORDERED: DOXY100C43 PO (06:46)
[2021-03-23 06:55] VITALS: BP 119/81
[2021-03-23] MEDS ORDERED: ketorolac tromethamine 15mg/ml inj. IV ONE (07:20)
[2021-03-23] MEDS ORDERED: normal saline 1000ML IV soln IVB ONE (07:25)
[2021-03-23] MEDS ORDERED: iohexol 300mg/ml 100ml inj. ONE (07:37)
== END 2021-03-23 10:17 ==
LOC: ER 04:01 → EEVIPCON 04:01 → ER 10:17
DX: N89.8 Other specified noninflammatory disorders of vagina (principal); A41.9 Sepsis, unspecified organism; K80.20 Calculus of gallbladder without cholecystitis without obstruction; R50.9 Fever, unspecified; R19.7 Diarrhea, unspecified; R07.0 Pain in throat; I10 Essential (primary) hypertension; M19.90 Unspecified osteoarthritis, unspecified site; G89.29 Other chronic pain; F41.9 Anxiety disorder, unspecified; F31.9 Bipolar disorder, unspecified; F20.9 Schizophrenia, unspecified; F12.90 Cannabis use, unspecified, uncomplicated; F15.90 Other stimulant use, unspecified, uncomplicated; F11.90 Opioid use, unspecified, uncomplicated; Z87.440 Personal history of urinary (tract) infections; Z86.14 Personal history of Methicillin resistant Staphylococcus aureus infection; Z98.890 Other specified postprocedural states; Z91.013 Allergy to seafood; Z79.2 Long term (current) use of antibiotics; Z79.899 Other long term (current) drug therapy
CPT/HCPCS: 36415; 71045; 74177; 76856; 80053; 80305; 81001; 81025; 83605; 83735; 84145; 85025; 86592; 87040; 87088; 87210; 87491; 93005; 93976; 96361; 96365; 96366; 96375; 99285; J0696; J1885; J7030; Q9967

== ENCOUNTER 2021-08-24 15:05 | Emergency (ER) | payer MEDICAID, OTHER ==
[~2021-08-24] VITALS: Ht 165.1 cm; Wt 100.5 kg
[2021-08-24 15:17] VITALS: BP 120/76
[2021-08-24 15:52] LABS: BASOPHILS % (AUTO) 0.7 % (0-1); EOSINOPHILS # (AUTO) 0.3 X10'3 (0-0.9); EOSINOPHILS % (AUTO) 4.7 % (0-6); HEMATOCRIT 40.4 % (35.0-45.0); HEMOGLOBIN 13.6 g/dl (12.0-16.0); LYMPHOCYTES # (AUTO) 2.1 X10'3 (1.1-4.8); LYMPHOCYTES % (AUTO) 36.4 % (21-51); MEAN CORPUSCULAR HEMOGLOBIN 29.3 PG (27.0-31.0); MEAN CORPUSCULAR HGB CONC 33.5 g/dL (33.0-36.5); MEAN CORPUSCULAR VOLUME 87.3 FL (78-98); MEAN PLATELET VOLUME 7.8 FL (7.4-10.4); MONOCYTES # (AUTO) 0.7 X10'3 (0-0.9); MONOCYTES % (AUTO) 11.8 % (2-12); NEUTROPHILS # (AUTO) 2.7 X10'3 (1.8-7.7); NEUTROPHILS % (AUTO) 46.4 % (42-75); PLATELET COUNT 308 X10'3 (140-440); RED BLOOD COUNT 4.63 X10'6 (4.20-5.60); RED CELL DISTRIBUTION WIDTH 14.1 % (11.5-14.5); WHITE BLOOD COUNT 5.8 X10'3 (4.5-11.0)
[2021-08-24 16:03] LABS: D-DIMER 0.73 MG/L FEU (0-0.50)
[2021-08-24 16:17] LABS: ALANINE AMINOTRANSFERASE 26 U/L (12-78); ALBUMIN 3.6 G/DL (3.4-5.0); ALKALINE PHOSPHATASE 55 IU/L (46-116); ANION GAP 7 (8-16); ASPARTATE AMINO TRANSFERASE 20 U/L (10-37); BILIRUBIN,TOTAL 0.2 MG/DL (0.1-1.0); BLOOD UREA NITROGEN 10 MG/DL (7-18); BUN/CREATININE RATIO 16.7 (6.6-38.0); CALCIUM 9.1 MG/DL (8.5-10.1); CHLORIDE 103 MMOL/L (99-107); GLUCOSE 87 MG/DL (70-104); POTASSIUM 4.5 MMOL/L (3.5-5.1); SODIUM 137 MMOL/L (135-145); TOTAL CARBON DIOXIDE 27.1 MMOL/L (24-32); TOTAL PROTEIN 7.3 G/DL (6.4-8.2); eGFR > 90 ML/MIN
[2021-08-24] MEDS ORDERED: iohexol 350MG/ML 100ml bottle IV ONE (19:40)
[2021-08-24 21:00] LABS: CLARITY,URINE SLIGHTLY CLOUDY (Clear); COLOR,URINE YELLOW (Yellow); GLUCOSE, URINE NEGATIVE (Neg); KETONES,URINE NEGATIVE (Neg); LEUKOCYTE ESTERASE ,URINE SMALL (Neg); NITRITES, URINE NEGATIVE (Neg); OCCULT BLOOD,URINE SMALL (Neg); PROTEIN,URINE NEGATIVE (Neg); URINE HCG NEGATIVE (NEG); UROBILINOGEN,URINE 0.2 E.U/dL (0.2-1.0)
[2021-08-24 21:05] LABS: UA COLLECTION TYPE VOIDED
[2021-08-24 21:08] LABS: BACTERIA,URINE FEW /HPF (Neg); MUCUS STRANDS FEW /LPF (Neg); SQUAMOUS EPITHELIAL CELL,UR MANY /LPF (FEW)
[2021-08-24 21:18] LABS: URINE AMPHETAMINE SCREEN NEGATIVE (Neg); URINE BARBITUATE SCREEN NEGATIVE (Neg); URINE BENZODIAZEPINES SCREEN NEGATIVE (Neg); URINE CANNABINOID SCREEN NEGATIVE (Neg); URINE COCAINE SCREEN NEGATIVE (Neg); URINE METHADONE SCREEN NEGATIVE (Neg); URINE OPIATE SCREEN NEGATIVE (Neg); URINE PHENCYCLIDINE SCREEN NEGATIVE (Neg)
[2021-08-24] MEDS ORDERED: NITR100C6 PO (23:03)
== END 2021-08-24 23:19 | disposition home or self-care (01) ==
LOC: ER 15:06
DX: N39.0 Urinary tract infection, site not specified (principal); R60.0 Localized edema; I10 Essential (primary) hypertension; M19.90 Unspecified osteoarthritis, unspecified site; G89.29 Other chronic pain; F12.90 Cannabis use, unspecified, uncomplicated; F15.90 Other stimulant use, unspecified, uncomplicated; F11.90 Opioid use, unspecified, uncomplicated; Z86.718 Personal history of other venous thrombosis and embolism; Z87.440 Personal history of urinary (tract) infections; Z98.891 History of uterine scar from previous surgery; Z91.013 Allergy to seafood; Z79.899 Other long term (current) drug therapy
CPT/HCPCS: 36415; 71045; 71275; 80053; 80305; 81001; 81025; 83880; 84484; 85025; 85379; 93005; 99285; Q9967

== ENCOUNTER 2021-11-26 17:36 | Emergency (ER) | payer MEDICAID ==
[~2021-11-26] VITALS: Ht 162.6 cm; Wt 100.5 kg
[~2021-11-26 17:36] MED LIST changes: +NITR100C6 PO
--- NOTE | 2021-11-26 18:51 | NUR ---
Introduced self to pt. Pt declines blood work and urine. Pt states there is nothing wrong with her. Pt states she just wants her methadone, something to eat and drink.
--- NOTE | 2021-11-26 19:30 | NUR ---
Pt pink, alert, no acute/resp distress. Pt refuses blood and urine collection.
--- NOTE | 2021-11-26 20:01 | NUR ---
Pt pink, alert, no acute/resp distress. Pt refuses any lab collection and urine collection.
[2021-11-26 20:50] LABS: URINE HCG NEGATIVE (NEG)
--- NOTE | 2021-11-26 20:55 | NUR ---
Pt pink, alert, no acute/resp distress. Pt not cooperative with blood or urine collection. Pt refuses at this time.
[2021-11-26 21:01] LABS: URINE AMPHETAMINE SCREEN POSITIVE (Neg); URINE BARBITUATE SCREEN NEGATIVE (Neg); URINE BENZODIAZEPINES SCREEN NEGATIVE (Neg); URINE CANNABINOID SCREEN NEGATIVE (Neg); URINE COCAINE SCREEN NEGATIVE (Neg); URINE METHADONE SCREEN POSITIVE (Neg); URINE OPIATE SCREEN NEGATIVE (Neg); URINE PHENCYCLIDINE SCREEN NEGATIVE (Neg)
--- NOTE | 2021-11-26 22:00 | NUR ---
Pt arrived to unit in hostile manner, pt verbally aggressive, pt came over in regular clothes, pt refuses to change clothes and states that she will fight everyone in sight", Pt denies SI Patient stated 'I'm just depressed" Pt asked if on any current medications and she states Methadone is the only medication from the [place] [facility]. Medication dose and frequency need verification before reconcilliation.
--- NOTE | 2021-11-27 00:02 | NUR ---
PT LAYING IN BED AWAKE, NO ACUTE DISTRESS NOTED.
--- NOTE | 2021-11-27 01:00 | NUR ---
Pt refuses to cooperate with staff states she just wants to be left alone and not bothered.
--- NOTE | 2021-11-27 03:00 | NUR ---
Pt observed adjusting herself in the bed, no acute distress noted.
[2021-11-27 05:44] VITALS: BP 119/74
--- NOTE | 2021-11-27 05:55 | NUR ---
Sukhi mcintosh at this time, no acute distress noted.
--- NOTE | 2021-11-27 06:15 | NUR ---
RECEIVED PATIENT IN BED SLEEPING. NO ACUTE DISTRESS NOTED AT THIS TIME. WILL CONTINUE TO OBERSEVE AND ASSIST NEEDED.
[2021-11-27 09:59] LABS: BASOPHILS % (AUTO) 0.6 % (0-1); EOSINOPHILS # (AUTO) 0.2 X10'3 (0-0.9); EOSINOPHILS % (AUTO) 3.5 % (0-6); HEMATOCRIT 42.1 % (35.0-45.0); HEMOGLOBIN 14.1 g/dl (12.0-16.0); LYMPHOCYTES # (AUTO) 1.6 X10'3 (1.1-4.8); LYMPHOCYTES % (AUTO) 25.8 % (21-51); MEAN CORPUSCULAR HEMOGLOBIN 27.8 PG (27.0-31.0); MEAN CORPUSCULAR HGB CONC 33.5 g/dL (33.0-36.5); MEAN PLATELET VOLUME 8.7 FL (7.4-10.4); MONOCYTES # (AUTO) 0.5 X10'3 (0-0.9); MONOCYTES % (AUTO) 8.3 % (2-12); NEUTROPHILS # (AUTO) 3.8 X10'3 (1.8-7.7); NEUTROPHILS % (AUTO) 61.8 % (42-75); PLATELET COUNT 284 X10'3 (140-440); RED BLOOD COUNT 5.08 X10'6 (4.20-5.60); RED CELL DISTRIBUTION WIDTH 14.2 % (11.5-14.5); WHITE BLOOD COUNT 6.2 X10'3 (4.5-11.0)
[2021-11-27 10:22] LABS: ALANINE AMINOTRANSFERASE 23 U/L (12-78); ALBUMIN 3.3 G/DL (3.4-5.0); ALBUMIN/GLOBULIN RATIO 0.9 (1.1-1.5); ALKALINE PHOSPHATASE 52 IU/L (46-116); ANION GAP 11 (8-16); ASPARTATE AMINO TRANSFERASE 17 U/L (10-37); BILIRUBIN,TOTAL 0.5 MG/DL (0.1-1.0); BLOOD UREA NITROGEN 10 MG/DL (7-18); BUN/CREATININE RATIO 13.9 (6.6-38.0); CALCIUM 8.9 MG/DL (8.5-10.1); CHLORIDE 103 MMOL/L (99-107); CREATININE 0.72 MG/DL (0.40-0.90); GLUCOSE 130 MG/DL (70-104); POTASSIUM 3.9 MMOL/L (3.5-5.1); SODIUM 140 MMOL/L (135-145); TOTAL CARBON DIOXIDE 26.1 MMOL/L (24-32); eGFR > 90 ML/MIN
[2021-11-27 10:26] LABS: ETHANOL < 0.010 GM/DL (0.0-0.010)
[2021-11-27 10:47] LABS: CLARITY,URINE CLEAR (Clear); COLOR,URINE YELLOW (Yellow); GLUCOSE, URINE NEGATIVE (Neg); KETONES,URINE NEGATIVE (Neg); LEUKOCYTE ESTERASE ,URINE NEGATIVE (Neg); NITRITES, URINE NEGATIVE (Neg); OCCULT BLOOD,URINE TRACE-INTACT (Neg); PROTEIN,URINE NEGATIVE (Neg); UROBILINOGEN,URINE 0.2 E.U/dL (0.2-1.0)
[2021-11-27 10:50] LABS: UA COLLECTION TYPE CLN CATCH MIDSTREAM
[2021-11-27] MEDS ORDERED: METH-603 PO (10:50)
[2021-11-27 10:51] LABS: BACTERIA,URINE FEW /HPF (Neg); MUCUS STRANDS FEW /LPF (Neg); RBC,URINE 0-2 /HPF (0-2); SQUAMOUS EPITHELIAL CELL,UR MODERATE /LPF (FEW); WBC,URINE 0-4 /HPF (0-4)
--- NOTE | 2021-11-27 11:14 | NUR ---
Patient stating that she goes to a methadone clinic in [facility] and receives methadone 70 mg tab PO daily from the clinic. Patients mother has also verified the same. She stated that she goes to the clinic and gets a dose, she is not prescribed an RX. I attempted to contact the [facility] at at which the tax compliance representative stated that she would have someone from the clinic call back with dosage and if she is a patient of the [facility].
[2021-11-27] MEDS ORDERED: LORazepam 2 mg/ml vial IM ONE (12:25)
[2021-11-27] MEDS ORDERED: diphenhydrAMINE 50 mg/ml inj IM ONE (12:25)
--- NOTE | 2021-11-27 12:30 | NUR ---
PATIENT BEGAN TO GET AGITATED, STATING THAT SHE NEEDS HER MEDICATION METHADONE. THE PATIENT ATTENDS [facility]. CHARGE NURSE JAMES HERNANDEZ WAS NOTIFIED AND ASSISTED IN THE PROCESS TO VERIFY THE MEDICATION FROM THE CLINIC. THE CLINIC STATED THAT THEY WOULD CALL BACK WITH THE VERIFICATION BUT HAS YET TO CALL BACK. THE PATIENT STARTED ACTING LIKE A CAT AND TRIED TO ELOPE AND WAS PLACED IN 4 POINT RESTRAINTS. THE PATIENT TOLERATED WELL. DR. VELAZQUEZ IS AWARE OF THE SITUATION. Addendum: 11/27/21 at 1349 by [email or web address] SECURITY WAS CALLED THE PATIENT TRIED TO ELOPE. A CODE BRENT WAS ALSO CALLED. PATIENT APPREHENDED BY SECURITY AND WAS VERY AGITATED AND VIOLENT.
--- NOTE | 2021-11-27 13:30 | NUR ---
Dr. Garland evaluated patient after being put in restraints, patient stated to her that the reason why she is upset is due to the fact that she normally takes methadone and has not take it. I notified Dr. Garland that I was currently working on getting the information on dosage and medication confirmation with the methadone clinic and have not heard back yet. I attempted to contact the methadone clinic for a second time and there was no answer. I will notified Dr. Garland regarding this and discuss with her was the patient states normal daily dose is.
[2021-11-27] MEDS ORDERED: methadone 10mg tablet PO ONE (13:50)
== END 2021-11-27 14:42 | disposition home or self-care (01) ==
LOC: ER 17:37
DX: R45.851 Suicidal ideations (principal); I10 Essential (primary) hypertension; F41.9 Anxiety disorder, unspecified; F20.9 Schizophrenia, unspecified; F31.9 Bipolar disorder, unspecified; F12.10 Cannabis abuse, uncomplicated; F11.10 Opioid abuse, uncomplicated; G89.29 Other chronic pain; M54.9 Dorsalgia, unspecified; Z91.018 Allergy to other foods; Z88.8 Allergy status to other drugs, medicaments and biological substances; Z20.822 Contact with and (suspected) exposure to COVID-19
CPT/HCPCS: 36415; 80053; 80305; 80320; 81001; 81025; 84443; 85025; 87635; 99285; C9803

== ENCOUNTER 2022-10-24 22:48 | Emergency (ER) | payer MEDICAID ==
[~2022-10-24] VITALS: Ht 172.7 cm; Wt 72.7 kg
[~2022-10-24 22:48] MED LIST changes: -BUPR1FIL3 SL; -CLON0.1T2 PO; +METH-603 PO; -NITR100C6 PO; -RISP2TAB85 PO; -TRAZ-251 PO
[2022-10-24] MEDS ORDERED: LORazepam 1 MG tablet PO ONE (23:00)
[2022-10-24 23:33] VITALS: BP 122/88
== END 2022-10-24 23:36 | disposition home or self-care (01) ==
LOC: ER 22:49
DX: F41.9 Anxiety disorder, unspecified (principal); F19.10 Other psychoactive substance abuse, uncomplicated; I10 Essential (primary) hypertension; M19.90 Unspecified osteoarthritis, unspecified site; G89.29 Other chronic pain; F31.9 Bipolar disorder, unspecified; F20.9 Schizophrenia, unspecified; F12.90 Cannabis use, unspecified, uncomplicated; F15.90 Other stimulant use, unspecified, uncomplicated; F11.90 Opioid use, unspecified, uncomplicated; Z98.890 Other specified postprocedural states; Z91.010 Allergy to peanuts; Z79.899 Other long term (current) drug therapy
CPT/HCPCS: 99283

== ENCOUNTER 2023-08-28 13:16 | Emergency (ER) | payer MEDICARE, MEDICAID ==
[~2023-08-28] VITALS: Ht 172.7 cm; Wt 83.1 kg
[2023-08-28 13:40] VITALS: BP 138/99; PULSE 98; RESP 16; TEMP 97.9; O2SAT 100
[2023-08-28] MEDS ORDERED: PERM60CR19 TOP (13:47)
== END 2023-08-28 13:55 | disposition home or self-care (01) ==
LOC: ER 13:17
DX: B86 Scabies (principal); I10 Essential (primary) hypertension; G89.29 Other chronic pain; M54.9 Dorsalgia, unspecified; F31.9 Bipolar disorder, unspecified; F20.9 Schizophrenia, unspecified; Z88.0 Allergy status to penicillin
CPT/HCPCS: 99283

== ENCOUNTER 2023-09-12 14:35 | Emergency (ER) | payer MEDICARE, MEDICAID ==
[~2023-09-12] VITALS: Ht 172.7 cm; Wt 83.2 kg
[~2023-09-12 14:35] MED LIST changes: +PERM60CR19 TOP
[2023-09-12] MEDS ORDERED: PERM60CR19 TP (16:32)
[2023-09-12] MEDS ORDERED: IBUP-1984 PO (16:32)
[2023-09-12 16:47] VITALS: BP 128/86; PULSE 101; RESP 20; TEMP 98.3; O2SAT 98
== END 2023-09-12 16:51 | disposition home or self-care (01) ==
LOC: ER 14:36
DX: M25.561 Pain in right knee (principal); B86 Scabies; I10 Essential (primary) hypertension; M19.90 Unspecified osteoarthritis, unspecified site; F31.9 Bipolar disorder, unspecified; F12.90 Cannabis use, unspecified, uncomplicated; F15.90 Other stimulant use, unspecified, uncomplicated; Z91.013 Allergy to seafood; Z79.1 Long term (current) use of non-steroidal anti-inflammatories (NSAID); Z79.899 Other long term (current) drug therapy
CPT/HCPCS: 73564; 93971; 99284

== ENCOUNTER 2023-09-18 12:17 | Emergency (ER) | payer MEDICARE, MEDICAID ==
[~2023-09-18] VITALS: Ht 243.8 cm; Wt 83.2 kg
[~2023-09-18 12:17] MED LIST changes: +IBUP-1984 PO; +PERM60CR19 TP
[2023-09-18 13:16] VITALS: BP 140/93; PULSE 90; RESP 16; TEMP 97.8; O2SAT 100
[2023-09-18 14:23] LABS: BASOPHILS % (AUTO) 0.7 % (0-1); EOSINOPHILS # (AUTO) 0.3 X10'3 (0-0.9); EOSINOPHILS % (AUTO) 4.6 % (0-6); HEMATOCRIT 42.3 % (35.0-45.0); LYMPHOCYTES # (AUTO) 1.9 X10'3 (1.1-4.8); LYMPHOCYTES % (AUTO) 31.2 % (21-51); MEAN CORPUSCULAR HEMOGLOBIN 28.9 PG (27.0-31.0); MEAN CORPUSCULAR HGB CONC 33.1 g/dL (33.0-36.5); MEAN CORPUSCULAR VOLUME 87.2 FL (78-98); MEAN PLATELET VOLUME 8.1 FL (7.4-10.4); MONOCYTES # (AUTO) 0.5 X10'3 (0-0.9); MONOCYTES % (AUTO) 8.7 % (2-12); NEUTROPHILS # (AUTO) 3.3 X10'3 (1.8-7.7); NEUTROPHILS % (AUTO) 54.8 % (42-75); PLATELET COUNT 342 X10'3 (140-440); RED BLOOD COUNT 4.84 X10'6 (4.20-5.60); RED CELL DISTRIBUTION WIDTH 14.4 % (11.5-14.5); WHITE BLOOD COUNT 6.1 X10'3 (4.5-11.0)
[2023-09-18 14:43] LABS: LIPASE 21 U/L (16-77); PRO BRAIN NATRIURETIC PEPTIDE 82 PG/ML (0-125)
== END 2023-09-18 19:27 | disposition left against medical advice (07) ==
LOC: ER 12:17
DX: R20.0 Anesthesia of skin (principal); Z53.21 Procedure and treatment not carried out due to patient leaving prior to being seen by health care provider
CPT/HCPCS: 36415; 71045; 82948; 83690; 83735; 83880; 84484; 85025; 93005; 99281

== ENCOUNTER 2024-01-16 11:46 | Emergency (ER) | payer MEDICARE, MEDICAID ==
[~2024-01-16] VITALS: Ht 172.7 cm; Wt 83.2 kg
[~2024-01-16 11:46] MED LIST changes: -IBUP-1984 PO; -PERM60CR19 TOP; -PERM60CR19 TP
[2024-01-16 12:55] LABS: BILIRUBIN,URINE NEGATIVE (Neg); CLARITY,URINE CLOUDY (Clear); COLOR,URINE YELLOW (Yellow); GLUCOSE, URINE NEGATIVE (Neg); KETONES,URINE NEGATIVE (Neg); LEUKOCYTE ESTERASE ,URINE NEGATIVE (Neg); NITRITES, URINE NEGATIVE (Neg); OCCULT BLOOD,URINE TRACE-INTACT (Neg); PROTEIN,URINE NEGATIVE (Neg); URINE HCG NEGATIVE (NEG); UROBILINOGEN,URINE 0.2 E.U/dL (0.2-1.0)
[2024-01-16 12:57] LABS: UA COLLECTION TYPE NON-SPECIFIED
[2024-01-16 13:00] LABS: SQUAMOUS EPITHELIAL CELL,UR MANY /LPF (FEW); WBC,URINE 0-4 /HPF (0-4)
[2024-01-16 13:01] LABS: RBC,URINE 0-2 /HPF (0-2)
[2024-01-16 13:02] LABS: BACTERIA,URINE NONE SEEN /HPF (Neg)
[2024-01-16 13:03] LABS: CAL OXALATE CRYSTALS 4+ /HPF (NEGATIVE)
[2024-01-16 14:23] LABS: ALBUMIN 3.9 G/DL (3.4-5.0); ANION GAP 9 (8-16); BLOOD UREA NITROGEN 12 MG/DL (7-18); CALCIUM 8.8 MG/DL (8.5-10.1); CHLORIDE 106 MMOL/L (99-107); CREATININE 0.92 MG/DL (0.40-0.90); GLUCOSE 72 MG/DL (70-104); POTASSIUM 3.4 MMOL/L (3.5-5.1); SODIUM 138 MMOL/L (135-145); TOTAL CARBON DIOXIDE 23.1 MMOL/L (24-32); eCRCL 85 ML/MIN; eGFR 69 ML/MIN
[2024-01-16 14:38] VITALS: BP 135/78; PULSE 88; RESP 14; TEMP 97.9; O2SAT 99
== END 2024-01-16 14:41 | disposition home or self-care (01) ==
LOC: ER 11:47
DX: R35.0 Frequency of micturition (principal); I10 Essential (primary) hypertension; M19.90 Unspecified osteoarthritis, unspecified site; G89.29 Other chronic pain; M54.9 Dorsalgia, unspecified; F41.9 Anxiety disorder, unspecified; F31.9 Bipolar disorder, unspecified; F20.9 Schizophrenia, unspecified; F12.90 Cannabis use, unspecified, uncomplicated; F10.90 Alcohol use, unspecified, uncomplicated; F11.90 Opioid use, unspecified, uncomplicated; Z91.013 Allergy to seafood
CPT/HCPCS: 36415; 80048; 81001; 81025; 99283

== ENCOUNTER 2024-04-13 22:25 | Emergency (ER) | payer MEDICARE, MEDICAID ==
[~2024-04-13] VITALS: Ht 172.7 cm; Wt 74.2 kg
[2024-04-13] MEDS: charcoal, activated 50 GM/240 ML bottle PO ONE (22:44)
[2024-04-13 23:14] LABS: BASOPHILS # (AUTO) 0.1 X10'3 (0-0.2); BASOPHILS % (AUTO) 0.7 % (0-1); EOSINOPHILS # (AUTO) 0.2 X10'3 (0-0.9); EOSINOPHILS % (AUTO) 2.1 % (0-6); HEMATOCRIT 34.6 % (35.0-45.0); HEMOGLOBIN 11.7 g/dl (12.0-16.0); LYMPHOCYTES # (AUTO) 2.2 X10'3 (1.1-4.8); LYMPHOCYTES % (AUTO) 29.3 % (21-51); MEAN CORPUSCULAR HEMOGLOBIN 29.7 PG (27.0-31.0); MEAN CORPUSCULAR HGB CONC 33.8 g/dL (33.0-36.5); MEAN CORPUSCULAR VOLUME 87.9 FL (78-98); MEAN PLATELET VOLUME 9.1 FL (7.4-10.4); MONOCYTES # (AUTO) 0.8 X10'3 (0-0.9); MONOCYTES % (AUTO) 10.4 % (2-12); NEUTROPHILS # (AUTO) 4.3 X10'3 (1.8-7.7); NEUTROPHILS % (AUTO) 57.5 % (42-75); PLATELET COUNT 291 X10'3 (140-440); RED BLOOD COUNT 3.94 X10'6 (4.20-5.60); RED CELL DISTRIBUTION WIDTH 13.5 % (11.5-14.5); WHITE BLOOD COUNT 7.4 X10'3 (4.5-11.0)
[2024-04-13 23:39] LABS: ALANINE AMINOTRANSFERASE 35 U/L (12-78); ALBUMIN 3.5 G/DL (3.4-5.0); ALKALINE PHOSPHATASE 40 IU/L (46-116); ANION GAP 8 (8-16); ASPARTATE AMINO TRANSFERASE 24 U/L (10-37); BILIRUBIN,TOTAL 0.2 MG/DL (0.1-1.0); BLOOD UREA NITROGEN 14 MG/DL (7-18); BUN/CREATININE RATIO 14.1 (10.0-20.0); CALCIUM 8.5 MG/DL (8.5-10.1); CHLORIDE 104 MMOL/L (99-107); CREATININE 0.99 MG/DL (0.40-0.90); GLUCOSE 135 MG/DL (70-104); POTASSIUM 3.1 MMOL/L (3.5-5.1); SALICYLATE 2.5 MG/DL (4.0-20.0); SODIUM 139 MMOL/L (135-145); THYROID STIMULATING HORMONE 0.55 ulU/ml (0.34-4.50); TOTAL CARBON DIOXIDE 26.8 MMOL/L (24-32); eCRCL 79 ML/MIN; eGFR 63 ML/MIN
[2024-04-13 23:44] LABS: ACETAMINOPHEN < 2.0 UG/ML (10-30); ETHANOL < 10 MG/DL (<10)
[2024-04-14] MEDS: normal saline 1000ML IV soln IVB ONE (00:22)
[2024-04-14] MEDS: normal saline 1000ml 1,000 ML IV ONE (00:54)
[2024-04-14] MEDS: glycopyrrolate 0.2mg/ml inj IV ONE (01:02)
[2024-04-14] MEDS: ringers solution, lactated 1000ml IV soln IV ONE (02:19)
[2024-04-14] MEDS: potassium Cl 20 mEq SR tablet PO STA (07:44)
[2024-04-14] MEDS: methadone 10mg tablet PO SCH (07:45)
[2024-04-14 08:02] LABS: BILIRUBIN,URINE NEGATIVE (Neg); CLARITY,URINE SLIGHTLY CLOUDY (Clear); COLOR,URINE YELLOW (Yellow); GLUCOSE, URINE NEGATIVE (Neg); KETONES,URINE NEGATIVE (Neg); LEUKOCYTE ESTERASE ,URINE NEGATIVE (Neg); NITRITES, URINE NEGATIVE (Neg); OCCULT BLOOD,URINE NEGATIVE (Neg); PROTEIN,URINE NEGATIVE (Neg); UROBILINOGEN,URINE 0.2 E.U/dL (0.2-1.0)
[2024-04-14 08:04] LABS: URINE HCG NEGATIVE (NEG)
[2024-04-14 08:09] LABS: MUCUS STRANDS MODERATE /LPF (Neg); SQUAMOUS EPITHELIAL CELL,UR MANY /LPF (FEW); UA COLLECTION TYPE CLN CATCH MIDSTREAM
[2024-04-14 08:10] LABS: CAL OXALATE CRYSTALS 4+ /HPF (NEGATIVE)
[2024-04-14 08:11] LABS: BACTERIA,URINE 1+ /HPF (Neg); RBC,URINE 0-2 /HPF (0-2)
[2024-04-14 08:29] LABS: URINE AMPHETAMINE SCREEN NEGATIVE (Neg); URINE BARBITUATE SCREEN NEGATIVE (Neg); URINE BENZODIAZEPINES SCREEN NEGATIVE (Neg); URINE CANNABINOID SCREEN NEGATIVE (Neg); URINE COCAINE SCREEN NEGATIVE (Neg); URINE METHADONE SCREEN POSITIVE (Neg); URINE OPIATE SCREEN NEGATIVE (Neg); URINE PHENCYCLIDINE SCREEN NEGATIVE (Neg)
[2024-04-14 12:53] VITALS: BP 138/78; PULSE 78; RESP 18; TEMP 97.8; O2SAT 97
[2024-04-15] MEDS ORDERED: methadone 10mg tablet PO ONE (08:00)
== END 2024-04-14 13:05 | disposition home or self-care (01) ==
LOC: ER 22:26
DX: T46.5X1A Poisoning by other antihypertensive drugs, accidental (unintentional), initial encounter (principal); R45.851 Suicidal ideations; I10 Essential (primary) hypertension; M19.90 Unspecified osteoarthritis, unspecified site; G89.29 Other chronic pain; M54.9 Dorsalgia, unspecified; F41.9 Anxiety disorder, unspecified; F32.A Depression, unspecified; F12.90 Cannabis use, unspecified, uncomplicated; F15.90 Other stimulant use, unspecified, uncomplicated; F11.90 Opioid use, unspecified, uncomplicated; Z20.822 Contact with and (suspected) exposure to COVID-19; Z91.013 Allergy to seafood; Z98.890 Other specified postprocedural states; Y92.89 Other specified places as the place of occurrence of the external cause
CPT/HCPCS: 36415; 80053; 80305; 80329; 81001; 81025; 84443; 85025; 87811; 93005; 96361; 96374; 99285; G0480; J3490; J7030; J7120; 80320; 96360

== ENCOUNTER 2024-05-08 10:40 | Emergency (ER) | payer MEDICARE, MEDICAID ==
[~2024-05-08] VITALS: Ht 172.7 cm; Wt 97.1 kg
--- NOTE | 2024-05-08 11:09 | NUR ---
NO XRAY PT IS
--- NOTE | 2024-05-08 11:59 | NUR ---
[facility] MEDICAL OFFICE ADMINISTRATOR, ATTEMPTED TO TAKE PT FOR XRAY. PT DENIED BECAUSE SHE IS CURRENTLY . PT STATED THAT SHE TOOK A TEST 3 DAYS AGO AND IT CAME BACK POSITIVE. MEDICAL OFFICE ADMINISTRATOR STATED THAT HE WILL NOTIFY MD OF REFUSAL.
--- NOTE | 2024-05-08 12:03 | NUR ---
PER CHIO ERNANDEZ HAIR BOILER, UA WILL BE DC. NO SIGNS OF INFECTION. PT WILL BE DISCHARGED.
[2024-05-08 12:10] LABS: BASOPHILS % (AUTO) 0.3 % (0-1); EOSINOPHILS # (AUTO) 0.5 X10'3 (0-0.9); EOSINOPHILS % (AUTO) 3.1 % (0-6); HEMATOCRIT 38.4 % (35.0-45.0); HEMOGLOBIN 12.5 g/dl (12.0-16.0); LYMPHOCYTES # (AUTO) 3.5 X10'3 (1.1-4.8); LYMPHOCYTES % (AUTO) 22.5 % (21-51); MEAN CORPUSCULAR HEMOGLOBIN 29.1 PG (27.0-31.0); MEAN CORPUSCULAR HGB CONC 32.5 g/dL (33.0-36.5); MEAN CORPUSCULAR VOLUME 89.6 FL (78-98); MONOCYTES # (AUTO) 1.8 X10'3 (0-0.9); MONOCYTES % (AUTO) 11.6 % (2-12); NEUTROPHILS # (AUTO) 9.7 X10'3 (1.8-7.7); NEUTROPHILS % (AUTO) 62.5 % (42-75); PLATELET COUNT 406 X10'3 (140-440); RED BLOOD COUNT 4.29 X10'6 (4.20-5.60); RED CELL DISTRIBUTION WIDTH 15.2 % (11.5-14.5); WHITE BLOOD COUNT 15.5 X10'3 (4.5-11.0)
[2024-05-08 12:34] LABS: ALBUMIN 3.3 G/DL (3.4-5.0); ANION GAP 11 (8-16); BLOOD UREA NITROGEN 28 MG/DL (7-18); BUN/CREATININE RATIO 38.4 (10.0-20.0); CALCIUM 8.6 MG/DL (8.5-10.1); CHLORIDE 101 MMOL/L (99-107); CREATININE 0.73 MG/DL (0.40-0.90); GLUCOSE 83 MG/DL (70-104); POTASSIUM 3.9 MMOL/L (3.5-5.1); PRO BRAIN NATRIURETIC PEPTIDE 62 PG/ML (0-125); SODIUM 141 MMOL/L (135-145); TOTAL CARBON DIOXIDE 28.7 MMOL/L (24-32); eCRCL 107 ML/MIN; eGFR 90 ML/MIN
[2024-05-08 12:38] LABS: TOTAL CELLS COUNTED 100
[2024-05-08 12:39] LABS: PLATELET ESTIMATE NORMAL
[2024-05-08 12:48] LABS: URINE HCG NEGATIVE (NEG)
[2024-05-08 12:50] LABS: BILIRUBIN,URINE NEGATIVE (Neg); CLARITY,URINE CLEAR (Clear); COLOR,URINE STRAW (Yellow); GLUCOSE, URINE NEGATIVE (Neg); KETONES,URINE NEGATIVE (Neg); LEUKOCYTE ESTERASE ,URINE NEGATIVE (Neg); NITRITES, URINE NEGATIVE (Neg); OCCULT BLOOD,URINE NEGATIVE (Neg); PH,URINE 7.5 (4.8-8.0); PROTEIN,URINE NEGATIVE (Neg); UROBILINOGEN,URINE 0.2 E.U/dL (0.2-1.0)
[2024-05-08 12:52] LABS: UA COLLECTION TYPE NON-SPECIFIED
[2024-05-08] MEDS ORDERED: AMOX-580 PO (13:49)
--- NOTE | 2024-05-08 13:53 | NUR ---
All further lab draw orders to be discontinued per Dr Rubio, carpenter/labor made aware.
[2024-05-08 14:13] VITALS: TEMP 98.1
[2024-05-08] MEDS: ampicillin/sulbac 3gm/NS 100ml 100 ML IV SCH (14:15)
[2024-05-08] MEDS: probenecid 500mg tablet PO ONE (14:16)
[2024-05-08] MEDS: amox tr/potassium clavulanate 875/125mg TAB PO ONE (14:41)
[2024-05-08 14:44] VITALS: BP 130/78; PULSE 97; RESP 16; O2SAT 98
== END 2024-05-08 14:48 | disposition home or self-care (01) ==
LOC: ER 10:41
DX: R60.0 Localized edema (principal); L03.116 Cellulitis of left lower limb; L03.115 Cellulitis of right lower limb; F17.210 Nicotine dependence, cigarettes, uncomplicated; F12.90 Cannabis use, unspecified, uncomplicated; F15.90 Other stimulant use, unspecified, uncomplicated; F11.90 Opioid use, unspecified, uncomplicated; I10 Essential (primary) hypertension; M19.90 Unspecified osteoarthritis, unspecified site; G89.29 Other chronic pain; M54.9 Dorsalgia, unspecified; F41.9 Anxiety disorder, unspecified; F32.A Depression, unspecified; Z91.013 Allergy to seafood; Z98.890 Other specified postprocedural states
CPT/HCPCS: 36415; 71045; 80048; 81003; 81025; 83880; 84145; 84484; 85007; 85025; 93005; 99285; J0295

== ENCOUNTER 2024-10-14 12:57 | Emergency (ER) | payer MEDICARE, MEDICAID ==
[~2024-10-14] VITALS: Ht 172.7 cm; Wt 96.8 kg
[~2024-10-14 12:57] MED LIST changes: +ARIP5TAB53 PO; +ESCI20TA36 PO; +GABA600T PO; -METH-603 PO; +METH10OR11 PO; +PHEN37.58 PO; +TEMA15CA5 PO; +TRAZ150T78 PO
[2024-10-14 13:22] VITALS: TEMP 96.7
[2024-10-14 17:30] VITALS: BP 146/89; PULSE 68; RESP 14; O2SAT 98
== END 2024-10-14 17:35 | disposition home or self-care (01) ==
LOC: ER 12:58
DX: S82.432A Displaced oblique fracture of shaft of left fibula, initial encounter for closed fracture (principal); F20.9 Schizophrenia, unspecified; F31.9 Bipolar disorder, unspecified; I10 Essential (primary) hypertension; F41.9 Anxiety disorder, unspecified; M19.90 Unspecified osteoarthritis, unspecified site; F12.90 Cannabis use, unspecified, uncomplicated; F15.90 Other stimulant use, unspecified, uncomplicated; F11.90 Opioid use, unspecified, uncomplicated; Z91.013 Allergy to seafood; Z88.8 Allergy status to other drugs, medicaments and biological substances; X58.XXXA Exposure to other specified factors, initial encounter; Y93.89 Activity, other specified; Y92.89 Other specified places as the place of occurrence of the external cause; Y99.8 Other external cause status
CPT/HCPCS: 73610; 99284; L4360

== ENCOUNTER 2024-12-06 11:56 | Emergency (ER) | payer MEDICARE, MEDICAID ==
[~2024-12-06] VITALS: Ht 172.7 cm; Wt 90.8 kg
[2024-12-06 12:01] VITALS: BP 129/85; PULSE 96; O2SAT 100
[2024-12-06 12:26] LABS: URINE HCG NEGATIVE (NEG)
[2024-12-06 12:29] LABS: BILIRUBIN,URINE NEGATIVE (Neg); COLOR,URINE YELLOW (Yellow); GLUCOSE, URINE NEGATIVE (Neg); KETONES,URINE TRACE mg/dl (Neg); LEUKOCYTE ESTERASE ,URINE NEGATIVE (Neg); NITRITES, URINE NEGATIVE (Neg); OCCULT BLOOD,URINE NEGATIVE (Neg); PROTEIN,URINE NEGATIVE (Neg); UROBILINOGEN,URINE 0.2 E.U/dL (0.2-1.0)
[2024-12-06 12:42] LABS: UA COLLECTION TYPE CLN CATCH MIDSTREAM
[2024-12-06 12:43] LABS: BACTERIA,URINE FEW /HPF (Neg); CLARITY,URINE SLIGHTLY CLOUDY (Clear); MUCUS STRANDS MODERATE /LPF (Neg); SQUAMOUS EPITHELIAL CELL,UR MANY /LPF (FEW); WBC,URINE 0-4 /HPF (0-4)
[2024-12-06 12:44] LABS: HYALINE CASTS 0-3 /LPF (NEGATIVE)
[2024-12-06] MEDS ORDERED: GABA-1405 PO (13:59)
[2024-12-06] MEDS ORDERED: CEPH-585 PO (13:59)
[2024-12-06 14:12] VITALS: RESP 16; TEMP 97.8
== END 2024-12-06 14:08 | disposition home or self-care (01) ==
LOC: ER 11:57
DX: N23 Unspecified renal colic (principal); I10 Essential (primary) hypertension; M19.90 Unspecified osteoarthritis, unspecified site; G89.29 Other chronic pain; M54.9 Dorsalgia, unspecified; F20.9 Schizophrenia, unspecified; F41.9 Anxiety disorder, unspecified; F32.A Depression, unspecified; F12.90 Cannabis use, unspecified, uncomplicated; F15.90 Other stimulant use, unspecified, uncomplicated; Z91.013 Allergy to seafood; Z79.899 Other long term (current) drug therapy; Z98.890 Other specified postprocedural states
CPT/HCPCS: 81001; 81025; 99283

== ENCOUNTER 2025-06-04 17:19 | Emergency (ER) | payer MEDICARE, MEDICAID ==
[~2025-06-04] VITALS: Ht 172.7 cm; Wt 78.6 kg
[~2025-06-04 17:19] MED LIST changes: +CEPH-585 PO; +GABA-1405 PO
[2025-06-04 17:38] VITALS: BP 125/98; PULSE 119; RESP 18; TEMP 97.2; O2SAT 100
--- NOTE | 2025-06-04 18:42 | Physician Documentation ---
HPI ~ General Chief Complaint: Medication Request Stated Complaint: MH Time Seen by MD: 17:55 Primary Medical Doctor: NONE History of Present Illness HPI Comments This is a 39-year-old female who presents requesting assistance with entering rehab program for methamphetamine abuse, patient reports only physical symptom is some normal vaginal discharge without burning or discomfort patient describes discharge as clear. Patient reports multiple unprotected sexual partners. Patient reports last methamphetamine abuse today. Patient does report significant mental health history however reports no suicidal ideation or homicidal ideation. Reports no other acute symptoms or concerns. Medication Reconciliation Allergies: Coded Allergies: Fish Containing Products (Unverified Allergy, Unknown, 10/14/24) shellfish derived (Unverified Allergy, Unknown, 10/14/24) Scheduled Aripiprazole (Aripiprazole), 10 MG PO DAILY Cephalexin*Monohydrate* (Keflex*), 1 CAP PO QID Clotrimazole (Clotrimazole-3), 1 APPLICATOR VG DAILY Escitalopram Oxalate (Lexapro), 1 TAB PO DAILY Gabapentin (Neurontin), 1 TAB PO TID Gabapentin (Gabapentin), 1 TAB PO Q8H Methadone Hcl (Methadone), 110 MG PO DAILY, (Reported) Metronidazole* (Flagyl*), 1 TAB PO Q12H Phentermine HCl (Phentermine HCl), 1 TAB PO QAM, (Reported) Temazepam (Restoril), 30 MG PO HS Trazodone Hcl (Trazodone Hcl), 150 MG PO HS@20 Past Medical History Past Medical History: Hypertension, *RENAL/*, UTI, Arthritis, Chronic Pain, Chronic Back Pain, Herpes Simplex, MRSA Abscess, Anxiety, Bipolar, Depression, Schizophrenia Past Surgical History: , orthopedic surgeries Patient History: Psychosis MOTHER (Her mother drove through a [employer]) FAMILY/OTHER Other Past Family History: none Alcohol Use: None Drug Use: marijuana, methamphetamine, heroin Lives with: Other Occupation: employed Review of Systems ROS As stated above in the HPI, otherwise all systems are reviewed and negative. Physical Exam Physical Exam Vital Signs: Temperature: 97.2, Source: Temporal, Heart Rate: 119, Respiratory Rate: 18, BP: 125/98, Pulse Oximetry: 100, Weight: 78.600 Oxygen Flow Rate: 0 Physical Exam VITALS: Reviewed and as above. GENERAL: Alert, nontoxic appearing, no apparent distress. RESPIRATORY: No increased work of breathing, no respiratory distress, speaking in full clear sentences PSYCH: Stating no HI or SI Progress Results/Orders Results/Orders Orders - HERMILO ZAYAS Substance Use Navigator (06/04/25 17:41) RPR (06/04/25 18:32) Chlam/Gc Amp Ur (06/04/25 18:32) Completed Orders - HERMILO ZAYAS Syphilis Screen Poc (06/04/25 18:32) Wet Prep (06/04/25 18:32) Hiv Ab 1&2 Rapid Scn (06/04/25 18:32) Hcg, Ur Ql (06/04/25 18:32) Ua W/Microscopic, Cult If Ind (06/04/25 19:43) Vital Signs 06/04/25 17:38 Temp 97.2 Pulse 119 Resp 18 B/P (MAP) 125/98 Pulse Ox 100 O2 Flow Rate 0 Laboratory Tests Test 06/04/25 19:11 06/04/25 19:43 Syphilis Serology Negative HIV (1&2) Antibody Non-reactive Urine Specimen Description Cln catch midstream Urine Color Straw Urine Clarity Clear Urine pH 6.5 Urine Specific [place] 1.010 Urine Protein Negative Urine Glucose (UA) Negative Urine Ketones Negative Urine Occult Blood Small Urine Nitrite Negative Urine Bilirubin Negative Urine Urobilinogen 0.2 Urine Leukocyte Esterase Negative Urine RBC 3-10 Urine WBC 0-4 Urine Squamous Epithelial Cells Moderate Urine Bacteria Few Urine Mucus Few Urine Culture Indicated Not ind Volume Urine Centrifuged 10 ml Urine HCG, Qualitative Negative Urine Comment Microbiology Date/Time Source Procedure Growth Status 06/04/25 19:43 Genital Vaginal Wet Prep - Final Complete Medical Decision Making Findings This is a 39-year-old female presented requesting assistance to enter rehab program for methamphetamine abuse, patient additionally reported increased vaginal discharge though without discomfort. Patient is otherwise well reporti ng reporting no other acute symptoms or concerns in his appropriate for outpatient follow up. Patient provided referral to substance use navigator to assist entering rehab program for methamphetamine abuse. Due to multiple unprotected partners patient tested for STIs, it is reassuring patient reports discharge without discomfort or other symptoms. STI panel ordered along with we t prep, patient chose to depart prior to results of wet prep, however appropriately was positive for yeast and clue cells, prescriptions electronically sent. Patient left prior to discharge education. Differential Dx:Considerations: Include: Economic, Psychosocial, Other (STI, substance abuse, SI, HI, mental health condition) Departure Time of Disposition: 18:42 Disposition: 01 HOME / SELF CARE / HOMELESS Impression: Primary Impression: Vaginal discharge Additional Impression: Possible exposure to STI Condition: Improved Additional Instructions: The substance use navigator will reach out to you likely tomorrow, your STI testing will likely take one-week to result, please contact medical records for results, the hospital may reach out to you if abnormal results are found. Please resume taking your previously prescribed mental health medications and follow up with your mental health prescriber in the next few days. Please also follow up with your primary care provider in the next few days. Please return to the emergency department for any new or worsening concerning symptoms. Referrals: NO PRIMARY CARE PROVIDER (PCP) Prescriptions Metronidazole* (Flagyl*) 500 Mg Tablet 1 TAB PO Q12H for 7 Days, #14 TAB Prov: HERMILO ZAYAS 06/05/25 Clotrimazole (Clotrimazole-3) 2 % Cream.appl 1 APPLICATOR VG DAILY for 3 Days, #21 GM 0 Refills Prov: HERMILO ZAYAS 06/05/25 Education Educated: Patient, Family Educated regarding: diagnosis, treatment, prognosis, need for follow up Signature Scribe Signature: No Scribe Attestation: The note accurately reflects work and decisions made by me.CYRUS Lawson 06/05/25 12:48 HERMILO ZAYAS Jun 04, 2025 18:42
[2025-06-04 19:48] LABS: HIV ANTIBODY 1&2 RAPID NON-REACTIVE (Neg); SYPHILIS SCREENING TEST POC NEGATIVE (Negative)
[2025-06-04 19:56] LABS: URINE HCG NEGATIVE (NEG)
[2025-06-04 20:09] LABS: LEUKOCYTE ESTERASE ,URINE NEGATIVE (Neg); NITRITES, URINE NEGATIVE (Neg); OCCULT BLOOD,URINE SMALL (Neg)
[2025-06-04 20:21] LABS: UA COLLECTION TYPE CLN CATCH MIDSTREAM
[2025-06-04 20:24] LABS: MUCUS STRANDS FEW /LPF (Neg); SQUAMOUS EPITHELIAL CELL,UR MODERATE /LPF (FEW)
[2025-06-05] MEDS ORDERED: METR-159 PO (01:27)
[2025-06-05] MEDS ORDERED: CLOT21CR6 VG (01:27)
== END 2025-06-04 20:40 | disposition home or self-care (01) ==
LOC: ER 17:19
DX: N89.8 Other specified noninflammatory disorders of vagina (principal); F12.90 Cannabis use, unspecified, uncomplicated; F11.90 Opioid use, unspecified, uncomplicated; F15.10 Other stimulant abuse, uncomplicated; F41.9 Anxiety disorder, unspecified; F20.9 Schizophrenia, unspecified; F31.9 Bipolar disorder, unspecified; G89.29 Other chronic pain; I10 Essential (primary) hypertension; M19.90 Unspecified osteoarthritis, unspecified site; Z86.14 Personal history of Methicillin resistant Staphylococcus aureus infection; Z87.440 Personal history of urinary (tract) infections; Z91.013 Allergy to seafood; Z79.899 Other long term (current) drug therapy; Z98.890 Other specified postprocedural states
CPT/HCPCS: 36415; 81001; 81025; 86592; 86703; 87210; 87491; 99283